=== PATIENT | female | born 1935 | race African-American/Black ===

== ENCOUNTER 2017-02-21 02:23 | Emergency (ER) | payer OTHER, BC ==
[2017-02-21 02:53] VITALS: BMI 58.3
--- NOTE | 2017-02-21 03:21 | PDOC ---
History of Present Illness - General Chief Complaint: Pain Stated Complaint: RIGHT SIDE PAIN Time Seen by Provider: 02/21/17 02:57 History Source: Patient Exam Limitations: No Limitations - History of Present Illness Initial Comments: 02/21/17 03:18 Patient is a 81 year old female with h/o HTN, DM, HLD, hyperthyroid, CVA, A-Fib , pacemaker, lumpectomy left breast, colitis c/o right lower quad abd pain x 2 wks pain radiates to the back. States pain is 8/10, crampy, continuos. Took Tylenol with mild relief. No aggravating factors. Had 2 days of diarrhea but now soft stools. denies fever, chills, nausea, vomiting, constipation, dysuria , chest pain, PMD: Dr. Bonilla PMHX: as above PSOCHx: neg cig, drug, etoh FamHx: noncontributory All: Sulfa GENERAL/CONSTITUTIONAL: [No fever or chills. No weakness. No weight change.] HEAD, EYES, EARS, NOSE AND THROAT: [No change in vision. No ear pain or discharge. No sore throat.] CARDIOVASCULAR: [No chest pain or shortness of breath.] RESPIRATORY: [No cough, wheezing, or hemoptysis.] GASTROINTESTINAL: (+) abdominla pain, No nausea, vomiting, (+) diarrhea (-) constipation. No rectal bleeding.] GENITOURINARY: [No dysuria, frequency, or change in urination.] MUSCULOSKELETAL: [No joint or muscle swelling or pain. No neck or back pain.] SKIN AND BREASTS: [No rash or easy bruising.] NEUROLOGIC: [No headache, vertigo, loss of consciousness, or loss of sensation.] PSYCHIATRIC: [No depression or anxiety.] ENDOCRINE: [No increased thirst. No abnormal weight change.] HEMATOLOGIC/LYMPHATIC: [No anemia, easy bleeding, or history of blood clots.] ALLERGIC/IMMUNOLOGIC: [No hives or skin allergy. No latex allergy.] GENERAL: [The patient is awake, alert, and fully oriented, in mild distress.] HEAD: [Normal with no signs of trauma.] EYES: [Pupils equal, round and reactive to light, extraocular movements intact, sclera anicteric, conjunctiva clear.] ENT: [Ears normal, nares patent, oropharynx clear without exudates. Moist mucous membranes.] NECK: [Normal range of motion, supple without lymphadenopathy, JVD, or masses.] LUNGS: [Breath sounds equal, clear to auscultation bilaterally. No wheezes, and no crackles.] HEART: [Regular rate and rhythm, normal S1 and S2 without murmur, rub.] ABDOMEN: [Soft, (+) tenderness to the RLQ (+) surgical scar right side of midline, normoactive bowel sounds. No guarding, no rebound. No masses.] EXTREMITIES: [Normal range of motion, no edema. No clubbing or cyanosis. No cords, erythema, or tenderness.] NEUROLOGICAL: [Cranial nerves II through XII grossly intact. Normal speech, normal gait.] PSYCH: [Normal mood, normal affect.] SKIN: [Warm, Dry, normal turgor, no rashes or lesions noted.] Past History - Past Medical History Allergies/Adverse Reactions: Allergies Allergy/AdvReac Type Severity Reaction Status Date / Time Sulfa (Sulfonamide Allergy Mild hives/rash Verified 02/21/17 02:49 Antibiotics) Home Medications: Ambulatory Orders Diltiazem HCl [Cardizem Cd] 360 mg PO DAILY #0 cap.er.24h 07/05/13 Furosemide [Lasix -] 40 mg PO DAILY #0 tablet 07/05/13 Glipizide [Glucotrol -] 5 mg PO BID #0 tablet 07/05/13 Pantoprazole Sodium [Protonix] 40 mg PO DAILY #0 tablet.dr 07/05/13 Valsartan [Diovan] 320 mg PO DAILY #0 tablet 07/05/13 Vitamin B Complex [B-100 Complex] 1 each PO DAILY #0 tablet 07/05/13 Insulin Lispro Protamin/Lispro [Humalog Mix 75-25 Kwikpen] 10 unit SQ BID Labetalol HCl 200 mg PO BID 07/23/15 Methimazole 5 mg PO DAILY 07/23/15 Warfarin Sodium [Coumadin] 2.5 mg PO DAILY #0 09/01/15 Anemia: Yes Asthma: No Cancer: No Cardiac Disorders: Yes (ATRIAL FIBRILLATION,DEMAND PACEMAKER) CVA: Yes (2008) COPD: No CHF: No Dementia: No Diabetes: Yes (non insulin dep.) GI Disorders: Yes (,HIATAL HERNIA,COLON POLYPS) Disorders: No HTN: Yes Hypercholesterolemia: Yes Liver Disease: No Suicide Attempt (Hx): No Seizures: No Thyroid Disease: Yes - Surgical History Abdominal Surgery: No Appendectomy: Yes Cardiac Surgery: Yes (PACEMAKER) Cholecystectomy: No Lung Surgery: No Neurologic Surgery: No Orthopedic Surgery: No - Psycho/Social/Smoking Cessation Hx Anxiety: No Suicidal Ideation: No Smoking Status: Yes Smoking History: Never smoked Have you smoked in the past 12 months: No Number of Cigarettes Smoked Daily: 0 Information on smoking cessation initiated: No Hx Alcohol Use: No Drug/Substance Use Hx: No Substance Use Type: None Abd/GI Specific PMHX - Complaint Specific PMHX GERD: No *Physical Exam - Vital Signs Last Vital Signs Temp Pulse Resp BP Pulse Ox 97.8 F 70 14 167/76 100 02/21/17 02:49 02/21/17 02:49 02/21/17 02:49 02/21/17 02:49 02/21/17 02:49 ED Treatment Course - LABORATORY CBC & Chemistry Diagram: 02/21/17 03:30 02/21/17 03:30 - RADIOLOGY Radiology Studies Ordered: Category Date Time Status ABDOMEN & PELVIS CT WITH CONTR [CT] Stat CT Scan 02/21/17 03:17 Ordered Medical Decision Making - Medical Decision Making 02/21/17 03:40 Patient is a 81 year old female with h/o HTN, DM, HLD, hyperthyroid, CVA, A-Fib , pacemaker, lumpectomy left breast, colitis c/o right lower quad abd pain x 2 wks pain radiates to the back. r/o uti, colitis, diverticulitis, renal stone declines pain meds Patient requesting something for pain. given Tylenol 1000mg IV 02/21/17 06:20 Patient Name: Zofia Kerns THIS IS A PRELIMINARYREPORT FROM [facility] EXAM: CT abdomen and pelvis with contrast IMAGES: 443 INDICATION: Right lower quadrant pain DATE OF SERVICE: 2017-02-21 04:33:59.0 COMPARISON: 07/02/13 FINDINGS: Lung bases are clear. The heart is moderately enlarged. Single pacer lead is noted.. Tiny right hepatic lobe hypodensity is likely a cyst. There is right renal scarring without stones or hydronephrosis. Normal gallbladder, pancreas, spleen, adrenal glands and left kidney. There is no bowel obstruction or inflammation. Colonic diverticulosis is noted without diverticulitis. There is no aortic aneurysm. There is no significant retroperitoneal lymphadenopathy. There is no evidence of appendicitis, although the appendix is not clearly visualized. The uterus and adnexal structures are notable only for a small calcified fibroid. Urinary bladder is unremarkable. There is a small amount of pelvic free fluid. No discrete pelvic lymphadenopathy is identified. IMPRESSION: No definite evidence of acute pathology. Right renal scarring. Small amount of pelvic free fluid could be physiologic THIS DOCUMENT HAS BEEN ELECTRONICALLY SIGNED Vini Jacobs MD 02/21/2017 05:19 ZACHERY Martinez Please call [facility] [phone] ([phone]) with questions 02/21/17 07:12 Endorsed to JOSSE Templeton *DC/Admit/Observation/Transfer Diagnosis at time of Disposition: Abdominal pain Qualifiers: Abdominal location: right lower quadrant Qualified Code(s): R10.31 - Right lower quadrant pain - Discharge Dispostion Condition at time of disposition: Stable - Referrals Referrals: Mia Flynn MD [Primary Care Provider] - - Patient Instructions Additional Instructions: Your must follow up with your pmd in 1-2 days, for further evaluation. Return to the ED for fever, chills, chest pain, sob or for any other complaints.
[2017-02-21 03:59] LABS: BASOPHIL 1.1 % (0-2.0); EOSINOPHIL 5.2 % (0-4.5); MCH 23.4 pg (25.7-33.7); MCHC 31.4 g/dl (32.0-36.0); MEAN CELL VOLUME 74.5 fl (80-96); MEAN PLT VOLUME 10.1 fl (7.5-11.1); NEUTROPHILS 51.1 % (42.8-82.8); PLATELET COUNT 160 K/MM3 (134-434); RDW 14.6 % (11.6-15.6); WHITE BLOOD COUNT 5.8 K/mm3 (4.0-10.0)
[2017-02-21 04:26] LABS: ALBUMIN 3.6 g/dl (3.4-5.0); BILIRUBIN,TOTAL 0.3 mg/dL (0.2-1.0); COCKROFT - GAULT 100.3; TOT PROT 6.3 g/dl (6.4-8.2)
[2017-02-21 04:31] LABS: INR 4.24 (0.82-1.09)
[2017-02-21] MEDS ORDERED: ACETAMINOPHEN 1000 MG/100 ML VIAL (NON FORMULARY) IVPB ONE (05:30)
[2017-02-21] MEDS ORDERED: ACETAMINOPHEN INJECTION 100 ML IVPB ONE (05:51)
[2017-02-21 07:09] LABS: URINE APPEARANCE CLEAR; URINE BILIRUBIN NEGATIVE (NEGATIVE); URINE COLOR COLORLESS; URINE GLUCOSE (UA) NEGATIVE (NEGATIVE); URINE KETONE NEGATIVE (NEGATIVE); URINE LEUK ESTERASE NEGATIVE (NEGATIVE); URINE NITRITE NEGATIVE (NEGATIVE); URINE PROTEIN NEGATIVE (NEGATIVE); URINE UROBILINOGEN NEGATIVE E.U./dl (0.2-1.0)
[2017-02-21 07:15] LABS: URINE BLOOD 1+ (NEGATIVE)
[2017-02-21 07:17] LABS: URINE RBC 2 /hpf (0-3); URINE WBC 1 /hpf (3-5)
--- NOTE | 2017-02-21 07:17 | PDOC ---
ED Treatment Course - LABORATORY CBC & Chemistry Diagram: 02/21/17 03:30 02/21/17 03:30 - ADDITIONAL ORDERS Additional order review: Laboratory Results 02/21/17 02/21/17 03:30 03:30 INR 4.24 H* D Sodium 142 Potassium 4.0 Chloride 108 H Carbon Dioxide 23 Anion Gap 11 BUN 28 H Creatinine 1.0 D Creat Clearance w eGFR 53.48 Random Glucose 113 H D Calcium 9.0 Total Bilirubin 0.3 D AST 22 D ALT 23 Alkaline Phosphatase 101 Total Protein 6.3 L Albumin 3.6 Lipase 132 02/21/17 03:30 RBC 4.23 MCV 74.5 L MCHC 31.4 L RDW 14.6 MPV 10.1 Neutrophils % 51.1 D Lymphocytes % 26.0 D Monocytes % 16.6 H Eosinophils % 5.2 H D Basophils % 1.1 - Medications Given in the ED: ED Medications Discontinued Medications Generic Name Dose Route Start Last Admin Trade Name Karen PRN Reason Stop Dose Admin Acetaminophen 1,000 mg 02/21/17 05:30 02/21/17 05:54 Ofirmev Injection - IVPB 02/21/17 05:31 1,000 mg ONCE ONE Administration Progress Note - Progress Note Progress Note: I have received report from TC Robles regarding this patient. Pt's initial chief complaint: RLQ abd pain x 2 weeks Pt's work up completed prior to sign out: labs, CT abd/pelvis Pt treatment given from prior staff: IV tylenol Pt plan to be completed: Awaiting UA results Dispo: Pending Medical Decision Making - Medical Decision Making A/P: 81 y/o afebrile female with 2 weeks of RLQ abd pain radiating to the back. The patient was initially seen and evalutated by TC Robles. Labs and CT abd/pelvis negative. Awaiting UA results. UA normal. Gave the patient all of her results. Will discharge to home with supportive care instructions and suggested she f/u with her PCP. The patient was instructed to return to the ER with any worsening or concerning symptoms. The patient verbalizes understanding of all instructions, has no further questions and is awaiting discharge. \ *DC/Admit/Observation/Transfer Diagnosis at time of Disposition: Abdominal pain Qualifiers: Abdominal location: right lower quadrant Qualified Code(s): R10.31 - Right lower quadrant pain - Discharge Dispostion Disposition: HOME Condition at time of disposition: Stable - Referrals Referrals: Mia Flynn MD [Primary Care Provider] - Eyad Villanueva MD [Staff Physician] - - Patient Instructions Printed Discharge Instructions: DI for Abdominal Pain-Adult Additional Instructions: Your must follow up with your pmd in 1-2 days, for further evaluation. Return to the ED for fever, chills, chest pain, sob or for any other complaints. - Post Discharge Activity
[2017-02-21 07:21] VITALS: BP 157/79; PULSE 66; TEMP 98
== END 2017-02-21 07:43 | disposition home or self-care (01) ==
LOC: JER 02:23
PROC: 3E033NZ Introduction of Analgesics, Hypnotics, Sedatives into Peripheral Vein, Percutaneous Approach (ICD-10-PCS; principal; 2017-02-21)
DX: R10.31 Right lower quadrant pain (principal); I10 Essential (primary) hypertension; E11.9 Type 2 diabetes mellitus without complications; Z79.84 Long term (current) use of oral hypoglycemic drugs; I48.91 Unspecified atrial fibrillation; Z79.01 Long term (current) use of anticoagulants; Z95.0 Presence of cardiac pacemaker
CPT/HCPCS: 36415; 74177-TC; 80053; 81003; 81015; 83690; 85025; 85610; 96374; 99283-25

== ENCOUNTER 2017-02-26 16:58 | Emergency (ER) | payer OTHER, BC ==
[2017-02-26 17:02] VITALS: BMI 26.4
--- NOTE | 2017-02-26 17:06 | PDOC ---
History of Present Illness - General History Source: Patient Exam Limitations: No Limitations - History of Present Illness Initial Comments: 02/26/17 17:34 The patient is a 81 year old with a significant past medical history of OBC, HTN , HLD, type 2 diabetes, AFIB (on coumadin), and colitis, who presents to the ED complaining of right lower quadrant abdominal pain constant for the past week and intermittent for the two weeks prior. She describes the RLQ pain as 10/ 10 in severity. She also complains of loose stools, but denies bloody, mucus, or black stools. She was seen in the ER on 02/21 and had relatively unremarkable labs. She also had a CT of the abdomen and pelvis with IV but not oral contrast that did not reveal any evidence of acute pathology. She denies fever, chills, nausea, vomiting, diarrhea. She denies dysuria, frequency, hematuria. The patient reports a distant history of abdominal surgery but does not remember if it was an appendectomy. PCP: Jed at [address] [place] [address]. <Wiliam Salinas - Last Filed: 02/26/17 17:34> <John Blackwell - Last Filed: 02/26/17 18:37> - General Chief Complaint: Pain, Acute Stated Complaint: ABD PAIN Time Seen by Provider: 02/26/17 17:01 Past History <Wiliam Salinas - Last Filed: 02/26/17 17:34> - Past Medical History Anemia: Yes Asthma: No Cancer: No Cardiac Disorders: Yes (ATRIAL FIBRILLATION,DEMAND PACEMAKER) CVA: Yes (2008) COPD: No CHF: No Dementia: No Diabetes: Yes (non insulin dep.) GI Disorders: Yes (,HIATAL HERNIA,COLON POLYPS) Disorders: No HTN: Yes Hypercholesterolemia: Yes Liver Disease: No Suicide Attempt (Hx): No Seizures: No Thyroid Disease: Yes - Surgical History Abdominal Surgery: No Appendectomy: Yes Cardiac Surgery: Yes (PACEMAKER) Cholecystectomy: No Lung Surgery: No Neurologic Surgery: No Orthopedic Surgery: No - Immunization History Immunization Up to Date: No - Psycho/Social/Smoking Cessation Hx Anxiety: No Suicidal Ideation: No Smoking Status: Yes Smoking History: Never smoked Have you smoked in the past 12 months: No Number of Cigarettes Smoked Daily: 0 Hx Alcohol Use: No Drug/Substance Use Hx: No Substance Use Type: None <John Blackwell - Last Filed: 02/26/17 18:37> - Past Medical History Allergies/Adverse Reactions: Allergies Allergy/AdvReac Type Severity Reaction Status Date / Time Sulfa (Sulfonamide Allergy Mild hives/rash Verified 02/26/17 17:00 Antibiotics) Home Medications: Ambulatory Orders Diltiazem HCl [Cardizem Cd] 360 mg PO DAILY #0 cap.er.24h 07/05/13 Glipizide [Glucotrol -] 5 mg PO BID #0 tablet 07/05/13 Valsartan [Diovan] 320 mg PO DAILY #0 tablet 07/05/13 Vitamin B Complex [B-100 Complex] 1 each PO DAILY #0 tablet 07/05/13 Insulin Lispro Protamin/Lispro [Humalog Mix 75-25 Kwikpen] 10 unit SQ BID Labetalol HCl 200 mg PO BID 07/23/15 Methimazole 5 mg PO DAILY 07/23/15 Warfarin Sodium [Coumadin] 2.5 mg PO DAILY #0 09/01/15 Digoxin [Lanoxin -] 0.125 mg PO DAILY 02/26/17 Donepezil HCl [Aricept -] 5 mg PO DAILY 02/26/17 Furosemide [Lasix -] 40 mg PO Q48H 02/26/17 Potassium Chloride [K-Dur -] 10 meq PO DAILY 02/26/17 Warfarin Na [Coumadin] 5 mg PO ASDIR 02/26/17 Review of Systems - Review of Systems Able to Perform ROS?: Yes Comments:: 02/26/17 17:35 CONSTITUTIONAL: Absent: fever, chills, diaphoresis, generalized weakness, malaise, loss of appetite HEENT: Absent: rhinorrhea, nasal congestion, throat pain, throat swelling, difficulty swallowing, mouth swelling, ear pain, eye pain, visual Changes CARDIOVASCULAR: Absent: chest pain, syncope, palpitations, irregular heart rate, lightheadedness , peripheral edema RESPIRATORY: Absent: cough, shortness of breath, dyspnea with exertion, orthopnea, wheezing, stridor, hemoptysis GASTROINTESTINAL: Present: RLQ pain. Absent: abdominal distension, nausea, vomiting, diarrhea, constipation, melena, hematochezia GENITOURINARY: Absent: dysuria, frequency, urgency, hesitancy, hematuria, flank pain, genital pain MUSCULOSKELETAL: Absent: myalgia, arthralgia, joint swelling SKIN: Absent: rash, itching, pallor HEMATOLOGIC/IMMUNOLOGIC: Absent: easy bleeding, easy bruising, lymphadenopathy, frequent infections ENDOCRINE: Absent: unexplained weight gain, unexplained weight loss, heat intolerance, cold intolerance NEUROLOGIC: Absent: headache, focal weakness or paresthesias, dizziness, unsteady gait, seizure, mental status changes, bladder or bowel incontinence PSYCHIATRIC: Absent: anxiety, depression, suicidal or homicidal ideation, hallucinations. <HeathermicaelaWiliam - Last Filed: 02/26/17 17:34> *Physical Exam - Vital Signs Last Vital Signs Temp Pulse Resp BP Pulse Ox 97.8 F 85 17 178/83 99 02/26/17 16:59 02/26/17 16:59 02/26/17 16:59 02/26/17 16:59 02/26/17 16:59 - Physical Exam Comments: 02/26/17 17:35 GENERAL: Well developed, well nourished. Awake and alert. No acute distress. HEENT: Normocephalic, atraumatic. PERRLA, EOMI. No conjunctival pallor. Sclera are non- icteric. Moist mucous membranes. Oropharynx is clear. NECK: Supple. Full ROM. No JVD. Carotid pulses 2+ and symmetric, without bruits. No thyromegaly. No lymphadenopathy. CARDIOVASCULAR: Regular rate and rhythm. No murmurs, rubs, or gallops. Distal pulses are 2+ and symmetric. PULMONARY: No evidence of respiratory distress. Lungs clear to auscultation bilaterally. No wheezing, rales or rhonchi. ABDOMINAL: Right lower quadrant tenderness On deep palpation. Non-distended. No rebound or guarding. No organomegaly. Normoactive bowel sounds. MUSCULOSKELETAL Normal range of motion at all joints. No bony deformities or tenderness. No CVA tenderness. EXTREMITIES: No cyanosis. No clubbing. No edema. No calf tenderness. SKIN: Warm and dry. Normal capillary refill. No rashes. No jaundice. NEUROLOGICAL: Alert, awake, appropriate. Cranial nerves 2-12 intact. No deficits to light touch and temperature in face, upper extremities and lower extremities. No motor deficits in the in face, upper extremities and lower extremities. Normoreflexic in the upper and lower extremities. Normal speech. Toes are down-going bilaterally. Gait is normal without ataxia. PSYCHIATRIC: Cooperative. Good eye contact. Appropriate mood and affect. <Wiliam Salinas - Last Filed: 02/26/17 17:34> - Vital Signs Last Vital Signs Temp Pulse Resp BP Pulse Ox 97.8 F 85 17 178/83 99 02/26/17 16:59 02/26/17 16:59 02/26/17 16:59 02/26/17 16:59 02/26/17 16:59 <John Blackwell - Last Filed: 02/26/17 18:37> ED Treatment Course - LABORATORY CBC & Chemistry Diagram: 02/26/17 17:12 02/26/17 17:14 <Wiliam Salinas - Last Filed: 02/26/17 17:34> - LABORATORY CBC & Chemistry Diagram: 02/26/17 17:12 02/26/17 17:14 <John Blackwell - Last Filed: 02/26/17 18:37> Medical Decision Making - Medical Decision Making 02/26/17 17:09 The patient is well-appearing and in no acute distress Given her persistent symptoms, will obtain repeat CT of the abdomen and pelvis with oral and IV contrast Will obtain labs, urinalysis 02/26/17 17:29 EKG: Ventricular pacing with occasional Naprosyn and beats, ventricular rate of 66 02/26/17 17:30 02/26/17 18:02 CBC noted, without leukocytosis Chemistries pending, urinalysis pending, CT pending 02/26/17 18:05 Chemistries noted CRP, lactic acid noted CT pending She is drinking contrast 02/26/17 18:37 The patient remains stable, and is awaiting CAT scan Case discussed in detail with oncoming Emergency Physician including history, physical exam and ancillary studies. Oncoming Emergency Physician has assumed care for the patient and will complete the evaluation and treatment. <John Blackwell - Last Filed: 02/26/17 18:37> *DC/Admit/Observation/Transfer - Attestations Scribe Attestion: 02/26/17 17:36 Documentation prepared by Wiliam Salinas, acting as medical microbiologist for John Blackwell MD. <Wiliam Salinas - Last Filed: 02/26/17 17:34> <John Blackwell - Last Filed: 02/26/17 18:37> Diagnosis at time of Disposition: Abdominal pain - Discharge Dispostion Condition at time of disposition: Stable
[2017-02-26 17:39] LABS: BASOPHIL 0.7 % (0-2.0); WHITE BLOOD COUNT 6.6 K/mm3 (4.0-10.8)
[2017-02-26 17:42] LABS: EOSINOPHIL 3.6 % (0-4.5); MCH 24.6 pg (25.7-33.7); MCHC 33.2 g/dl (32.0-36.0); MEAN CELL VOLUME 74.3 fl (80-96); MEAN PLT VOLUME 10.1 fl (7.5-11.1); PLATELET COUNT 190 K/MM3 (134-434)
[2017-02-26] MEDS ORDERED: ACETAMINOPHEN 1000 MG/100 ML VIAL (NON FORMULARY) IVPB ONE (17:42)
[2017-02-26] MEDS ORDERED: ACETAMINOPHEN INJECTION 100 ML IVPB ONE (17:47)
[2017-02-26 17:50] LABS: ALBUMIN 3.9 g/dl (3.5-5.0); BILIRUBIN,TOTAL 0.7 mg/dl (0.2-1.0); CALCIUM 9.5 mg/dl (8.4-10.2); COCKROFT - GAULT 45.73; TOT PROT 6.4 g/dl (6.4-8.3)
[2017-02-26 17:53] LABS: INR 2.6 (0.82-1.09); PROTHROMBIN TIME (PATIENT) 28.6 SEC (10.2-13.0)
--- NOTE | 2017-02-26 20:10 | PDOC ---
*Physical Exam - Vital Signs Last Vital Signs Temp Pulse Resp BP Pulse Ox 97.8 F 85 17 178/83 99 02/26/17 16:59 02/26/17 16:59 02/26/17 16:59 02/26/17 16:59 02/26/17 16:59 ED Treatment Course - LABORATORY CBC & Chemistry Diagram: 02/26/17 17:12 02/26/17 17:14 - ADDITIONAL ORDERS Additional order review: Laboratory Results 02/26/17 02/26/17 02/26/17 17:14 17:14 17:14 INR 2.60 H D PTT (Actin FS) 35.0 D Sodium 136 Potassium 3.5 Chloride 103 Carbon Dioxide 23 Anion Gap 10 BUN 29 H D Creatinine 1.0 D Creat Clearance w eGFR 53.48 Random Glucose 203 H D Lactic Acid 1.2 Calcium 9.5 Total Bilirubin 0.7 D AST 25 ALT 20 Alkaline Phosphatase 93 H D C-Reactive Protein Total Protein 6.4 Albumin 3.9 Lipase 35 02/26/17 17:14 INR PTT (Actin FS) Sodium Potassium Chloride Carbon Dioxide Anion Gap BUN Creatinine Creat Clearance w eGFR Random Glucose Lactic Acid Calcium Total Bilirubin AST ALT Alkaline Phosphatase C-Reactive Protein < 0.3 Total Protein Albumin Lipase 02/26/17 17:12 RBC 4.41 MCV 74.3 L MCHC 33.2 RDW 13.0 MPV 10.1 Neutrophils % 61.0 Lymphocytes % 21.8 Monocytes % 12.9 H Eosinophils % 3.6 Basophils % 0.7 - Medications Given in the ED: ED Medications Discontinued Medications Generic Name Dose Route Start Last Admin Trade Name Freq PRN Reason Stop Dose Admin Acetaminophen 1,000 mg 02/26/17 17:42 02/26/17 17:50 Ofirmev Injection - IVPB 02/26/17 17:43 1,000 mg ONCE ONE Administration Progress Note - Progress Note Progress Note: Care of this patient was transferred to [place] from Dr. Iyer at 1900 hrs. Patient is an elderly 81-year-old female who has had ongoing abdominal pain for a couple weeks. Patient was in [facility] emergency Department and recently had a workup for her abdominal pain including a IV contrast only CAT scan which was unremarkable as well as her blood work. Patient now comes back in with constant and worsening abdominal pain. Patient has a CT abdomen pending with both oral and IV contrast. 21:00 CT scan is unremarkable for any acute pathology The appendix was not seen so suspect that the patient's abdominal surgery was for an appendectomy There is no evidence of diverticulitis. Patient reports that the pain is better but still present. In discussion with the son and the son said that patient spends hours and hours on a firm chair hunched over to her right hand side and thinks that this may be a contributing factor to her discomfort and pain. The son says the pain does seem to be better when she is laying down or moving around. I considered keeping the patient for additional workup and evaluation however patient is adamant that she does not want to stay in the hospital and the the son is comfortable taking her home and will bring her back if she develops any vomiting, fever, bloody diarrhea or any worsening pain. Patient does also have a primary care doctor she will follow- up with on Tuesday. *DC/Admit/Observation/Transfer Diagnosis at time of Disposition: Abdominal pain - Discharge Dispostion Disposition: HOME Condition at time of disposition: Stable Admit: No - Patient Instructions Printed Discharge Instructions: DI for Abdominal Pain-Adult Additional Instructions: Take Tylenol as needed for the pain. Do not sit hunched over in your chair as it is most likely contributing to your abdominal pain. Return to the emergency department immediately with ANY new, persistent or worsening symptoms. Continue any medications as previously prescribed by your physician. You should follow up with your primary doctor as soon as possible regarding today's emergency department visit. . Please make sure your doctor reviews the results of your emergency evaluation. Thank you for coming to the Emergency Department today for your care. It was a pleasure to see you today. Please note that your evaluation is INCOMPLETE until you follow-up with your doctor.
[2017-02-26 21:02] VITALS: BP 175/62; PULSE 70; TEMP 98.2
--- NOTE | 2017-02-28 10:44 | EKG ---
Test Reason : Blood Pressure : / mmHG Vent. Rate : 064 BPM Atrial Rate : 076 BPM P-R Int : 000 ms QRS Dur : 086 ms QT Int : 386 ms P-R-T Axes : 000 021 -74 degrees QTc Int : 398 ms ELECTRONIC VENTRICULAR PACEMAKER ATRIAL FIBRILLATION ABNORMAL ECG WHEN COMPARED WITH ECG OF 01-SEP-2015 08:32, ELECTRONIC VENTRICULAR PACEMAKER IS NOW PRESENT VENT. RATE HAS DECREASED BY 71 BPM Confirmed by RACHNA SANTIAGO, YAAKOV (2016) on 02/28/2017 10:44:04 AM Referred By: JEFFREY FERNANDEZ Confirmed By:YAAKOV BRISCOE MD
== END 2017-02-26 21:53 | disposition home or self-care (01) ==
LOC: FER 16:58
PROC: 3E033NZ Introduction of Analgesics, Hypnotics, Sedatives into Peripheral Vein, Percutaneous Approach (ICD-10-PCS; principal; 2017-02-26)
DX: R10.9 Unspecified abdominal pain (principal); I48.91 Unspecified atrial fibrillation; Z95.0 Presence of cardiac pacemaker; I10 Essential (primary) hypertension; E78.00 Pure hypercholesterolemia, unspecified; Z86.73 Personal history of transient ischemic attack (TIA), and cerebral infarction without residual deficits
CPT/HCPCS: 36415; 74177-TC; 80053; 83605; 83690; 85025; 85610; 85730; 86140; 93005; 96374; 99282-25

== ENCOUNTER 2017-05-11 05:16 | Day surgery (SDC) | payer OTHER, BC ==
[2017-05-09 10:59] VITALS: BMI 25.4
[2017-05-11] MEDS: PHENYLEPHRINE 2.5% OPHTH SOLN 15 ML BOTTLE ONE ×2 (07:15→07:25)
[2017-05-11] MEDS: FLURBIPROFEN 0.03% OPHTH SOLN 2.5 ML BOTTLE ONE ×2 (07:15→07:25)
[2017-05-11] MEDS: CYCLOPENTOLATE HCL 1% OPHTH SOLN 2 ML BOTTLE ONE ×2 (07:15→07:25)
[2017-05-11] MEDS: TROPICAMIDE 1% OPHTH SOLN 15 ML BOTTLE ONE ×2 (07:15→07:25)
[2017-05-11] MEDS: CIPROFLOXACIN 0.3% EYE DROPS 5 ML BOTTLE ONE ×2 (07:15→07:25)
[2017-05-11 07:25] VITALS: TEMP 98
[2017-05-11] MEDS ORDERED: EPINEPHrine/PF 1 MG/1 ML (1:1,000) AMPULE ONE (07:36)
[2017-05-11] MEDS ORDERED: VANCOMYCIN 500 MG VIAL (RESTRICTED TO ID ONLY) ONE (07:36)
[2017-05-11] MEDS ORDERED: LIDOCAINE HCL/PF 1% SDV 5ML VIAL ONE (07:37)
[2017-05-11] MEDS ORDERED: WATER FOR INJ,STERILE 10 ML ONE (07:37)
[2017-05-11] MEDS ORDERED: LIDOCAINE HCL 2% JELLY (5 ML/TUBE) ONE (07:37)
[2017-05-11] MEDS ORDERED: POVIDONE-IODINE 5% OPHTHALMIC PREP 30 ML SOLUTION ONE (07:37)
[2017-05-11] MEDS ORDERED: ACETAMINOPHEN 325 MG TABLET (FP) PO PRN (07:41)
[2017-05-11] MEDS ORDERED: MIDAZOLAM HCL 2 MG/2 ML SINGLE DOSE VIAL ONE (07:42)
[2017-05-11] MEDS ORDERED: TROPICAMIDE 1% OPHTH SOLN 15 ML BOTTLE OP SCH (07:45)
[2017-05-11] MEDS ORDERED: FLURBIPROFEN 0.03% OPHTH SOLN 2.5 ML BOTTLE OP SCH (07:45)
[2017-05-11] MEDS ORDERED: CYCLOPENTOLATE HCL 1% OPHTH SOLN 2 ML BOTTLE OP SCH (07:45)
[2017-05-11] MEDS ORDERED: CIPROFLOXACIN HCL 0.3% OPHTH 2.5ML BOTTLE OP SCH (07:45)
[2017-05-11] MEDS ORDERED: PHENYLEPHRINE 2.5% OPHTH SOLN 15 ML BOTTLE OP SCH (07:45)
[2017-05-11] MEDS ORDERED: LIDOCAINE HCL 2% JELLY (5 ML/TUBE) TP ONE (07:50)
[2017-05-11] MEDS ORDERED: TRYPAN BLUE 0.5 ML DISP.SYRIN ONE (08:09)
[2017-05-11] MEDS ORDERED: POVIDONE-IODINE 5% OPHTHALMIC PREP 30 ML SOLUTION OS ONE (08:11)
[2017-05-11] MEDS ORDERED: CHONDROITIN SU A/HYALUR SOD 1 KIT IO ONE (08:21)
[2017-05-11] MEDS ORDERED: LIDOCAINE HCL 1% PRESERVATIVE FREE - 30ML VIAL IO ONE (08:21)
[2017-05-11] MEDS ORDERED: TRYPAN BLUE 0.5 ML DISP.SYRIN IO ONE (08:21)
[2017-05-11] MEDS ORDERED: BSS (NA/CA/MG/K) BALANCED SALT SOLUTION OPHTH SOLN 15 ML BOTTLE OS ONE (08:21)
[2017-05-11] MEDS ORDERED: EPINEPHrine/PF 1 MG/1 ML (1:1,000) AMPULE IO ONE (08:27)
[2017-05-11 10:29] VITALS: BP 162/63; PULSE 70
--- NOTE | 2017-05-11 14:27 | OP ---
DATE OF OPERATION: 05/11/2017 DATE OF DICTATION: 05/11/2017 PREOPERATIVE DIAGNOSIS: Cataract left eye. POSTOPERATIVE DIAGNOSIS: Cataract left eye. SURGEON: Le Carvalho M.D. PROCEDURE: Phacoemulsification with posterior chamber intraocular lens implantation. Capsular staining with Trypan blue. Lens used [id number] 23.0-diopter power, Serial number [id number]. ANESTHESIA: Topical MAC. COMPLICATIONS: None. PROCEDURE: The patient was brought to the operating room and correctly identified along with the operative site as well as correct intraocular lens scott. The patient was then prepped and draped in the usual sterile fashion including 5% Betadine solution in the conjunctival sac and an eyelid drape. An eyelid speculum was then placed into the operative eye. The eye was inspected and a poor red reflex was noted. A paracentesis port was created and .5 mL of intracameral preservative-free Lidocaine 1% was given. Beneath an air bubble, the capsule was then stained with Trypan blue. The Trypan blue was then irrigated from the eye with balanced salt solution (BBS). Viscoelastic was injected to inflate the anterior chamber. A temporal clear corneal would was created. A continuous circular capsulorrhexis was performed. The nucleus was then hydro-dissected and hydro-delineated was BSS and removed with phacoemulsification via [id number] approach. The remaining cortical material was irrigated and aspirated from the eye. Viscoelastic was injected in the anterior chamber to inflate the capsular bag. The intraocular lens was then injected into the bag. The Viscoelastic was irrigated and aspirated from the eye. All wounds were tested and found to be watertight. No suture was placed. The intraocular lens was noted to be well centered and covered by the anterior capsular border. Topical Vancomycin was given. The eye was patched and shielded. The patient was discharged from the operating room in stable condition. LE CARVALHO M.D. [id number]
== END 2017-05-11 10:10 | disposition home or self-care (01) ==
LOC: JASU-SURG 05:16
PROVIDERS: ATTEND Ophthalmology
PROC: 08RK3JZ Replacement of Left Lens with Synthetic Substitute, Percutaneous Approach (ICD-10-PCS; principal; 2017-05-11 08:00)
DX: H26.9 Unspecified cataract (principal); R29.2 Abnormal reflex

== ENCOUNTER 2017-05-25 06:30 | Day surgery (SDC) | payer OTHER, BC ==
[2017-05-23 13:49] VITALS: BMI 25.4
[~2017-05-25 06:30] MED LIST: CHONDROITIN SU A/HYALUR SOD 1 KIT IO ONE; EPINEPHrine/PF 1 MG/1 ML (1:1,000) AMPULE SQ ONE; LIDOCAINE HCL 1% PRESERVATIVE FREE - 30ML VIAL IO ONE; LIDOCAINE HCL 2% JELLY (5 ML/TUBE) TP ONE; TRYPAN BLUE 0.5 ML DISP.SYRIN IO ONE
[2017-05-25] MEDS ORDERED: FLURBIPROFEN 0.03% OPHTH SOLN 2.5 ML BOTTLE OD ONE ×3 (07:15→07:25)
[2017-05-25] MEDS ORDERED: CYCLOPENTOLATE HCL 1% OPHTH SOLN 2 ML BOTTLE OD ONE ×3 (07:15→07:25)
[2017-05-25] MEDS ORDERED: PHENYLEPHRINE 2.5% OPHTH SOLN 15 ML BOTTLE OD ONE ×3 (07:15→07:25)
[2017-05-25] MEDS ORDERED: TROPICAMIDE 1% OPHTH SOLN 15 ML BOTTLE OD ONE ×3 (07:15→07:25)
[2017-05-25] MEDS ORDERED: CIPROFLOXACIN HCL 0.3% OPHTH 2.5ML BOTTLE OD ONE ×3 (07:15→07:25)
[2017-05-25] MEDS ORDERED: ACETAMINOPHEN 325 MG TABLET (FP) PO PRN (07:48)
[2017-05-25] MEDS ORDERED: LIDOCAINE HCL 2% JELLY (5 ML/TUBE) TP ONE (07:59)
[2017-05-25] MEDS ORDERED: PHENYLEPHRINE 2.5% OPHTH SOLN 15 ML BOTTLE OP SCH (08:00)
[2017-05-25] MEDS ORDERED: TROPICAMIDE 1% OPHTH SOLN 15 ML BOTTLE OP SCH (08:00)
[2017-05-25] MEDS ORDERED: CYCLOPENTOLATE HCL 1% OPHTH SOLN 2 ML BOTTLE OP SCH (08:00)
[2017-05-25] MEDS ORDERED: CIPROFLOXACIN HCL 0.3% OPHTH 2.5ML BOTTLE OP SCH (08:00)
[2017-05-25] MEDS ORDERED: FLURBIPROFEN 0.03% OPHTH SOLN 2.5 ML BOTTLE OP SCH (08:00)
[2017-05-25] MEDS ORDERED: POVIDONE-IODINE 5% OPHTHALMIC PREP 30 ML SOLUTION OD ONE (08:06)
[2017-05-25] MEDS ORDERED: LIDOCAINE HCL 1% PRESERVATIVE FREE - 30ML VIAL IO ONE (08:13)
[2017-05-25] MEDS ORDERED: TRYPAN BLUE 0.5 ML DISP.SYRIN IO ONE (08:13)
[2017-05-25] MEDS ORDERED: CHONDROITIN SU A/HYALUR SOD 1 KIT IO ONE (08:15)
[2017-05-25] MEDS ORDERED: EPINEPHrine/PF 1 MG/1 ML (1:1,000) AMPULE SQ ONE (08:31)
[2017-05-25 10:00] VITALS: BP 125/57; PULSE 75
--- NOTE | 2017-05-25 11:02 | SPEC ---
DATE OF OPERATION: 05/25/2017 PREOPERATIVE DIAGNOSIS: Cataract right eye. POSTOPERATIVE DIAGNOSIS: Mature cataract right eye. OPERATION: Phacoemulsification of right cataract and capsular staining with Trypan blue and posterior chamber intraocular lens implantation and capsular staining with Trypan blue. The lens used [id number], 22.0 diopter power, serial No. [id number]. SURGEON: Le Carvalho M.D. ANESTHESIA: Topical MAC. COMPLICATIONS: None. PROCEDURE: The patient was brought to the operating room and correctly identified along with the operative site as well as correct intraocular lens scott. The patient was then prepped and draped in the usual sterile fashion including 5% Betadine solution in the conjunctival sac and an eyelid drape. An eyelid speculum was then placed into the operative eye. The eye was inspected and a poor red reflex was noted. A paracentesis port was created and .5 mL of intracameral preservative-free Lidocaine 1% was given. Beneath an air bubble, the capsule was then stained with Trypan blue. The Trypan blue was then irrigated from the eye with balanced salt solution (BBS). Viscoelastic was injected to inflate the anterior chamber. A temporal clear corneal wound was created. A continuous circular capsulorrhexis was performed. The nucleus was then hydro-dissected and hydro-delineated was BSS and removed with phacoemulsification via [id number] approach. The remaining cortical material was irrigated and aspirated from the eye. Viscoelastic was injected in the anterior chamber to inflate the capsular bag. The intraocular lens was then injected into the bag. The Viscoelastic was irrigated and aspirated from the eye. All wounds were tested and found to be watertight. No suture was placed. The intraocular lens was noted to be well centered and covered by the anterior capsular border. Topical Vancomycin was given. The eye was patched and shielded. The patient was discharged from the operating room in stable condition LE CARVALHO M.D. [id number]
== END 2017-05-25 10:37 | disposition home or self-care (01) ==
LOC: JASU-SURG 06:30
PROVIDERS: ATTEND Ophthalmology
PROC: 08RJ3JZ Replacement of Right Lens with Synthetic Substitute, Percutaneous Approach (ICD-10-PCS; principal; 2017-05-25 08:00)
DX: H25.11 Age-related nuclear cataract, right eye (principal); H57.09 Other anomalies of pupillary function

== ENCOUNTER 2018-11-08 00:15 | Inpatient (IN) | payer OTHER ==
[2018-11-08] MEDS ORDERED: GlUCAGON HUMAN RECOMBINANT 1 MG/VIAL ONE (00:29)
--- NOTE | 2018-11-08 01:34 | PDOC ---
Attending Attestation - HPI HPI: 11/08/18 01:59 The patient is a 83 year old female, with a significant past medical history of HTN, HLD, type 2 diabetes, CVA (), and Afib, who presents to the emergency department s/p episode of hypoglycemia. Patient endorses taking her Humalog mix insulin (75-25) without eating afterwards (normally eats after taking her insulin) when she began walking unsteadily, prompting them to call for EMS. While in the ED, the patient notes feeling lightheaded. Family denies that the patient hit her head. She denies recent chest pain or shortness of breath. Allergies: Sulfa Social history: Nonsmoker. Denies EtOH use and recreational drug use. Primary Care Physician: Dr. Ronal Lewis - Physicial Exam PE: 11/08/18 01:59 Agree with resident exam. <Ryne Montalvo - Last Filed: 11/08/18 02:09> - Resident Resident Name: Pankaj Woods - ED Attending Attestation I have performed the following: I have examined & evaluated the patient, The case was reviewed & discussed with the resident, I agree w/resident's findings & plan - Medical Decision Making 11/08/18 03:29 83-year-old female with acute onset of altered mental status found to have low blood sugar at home The patient took her insulin and did not eat according to family members She is also currently on glipizide She began feeling lightheaded in the emergency department and was found to have a blood sugar of 69 D50 one amp given as well as orange juice Due to oral hypoglycemics and persistent hypoglycemia patient will be held for observation <Tete Ramos - Last Filed: 11/08/18 03:31> Attestations - Attestations 11/08/18 02:00 Documentation prepared by Ryne Montalvo, acting as medical referral coordinator for Tete Ramos DO. <Ryne Montalvo - Last Filed: 11/08/18 02:09>
--- NOTE | 2018-11-08 02:14 | PDOC ---
History of Present Illness - General Chief Complaint: Blood Sugar Problem Stated Complaint: HYPOGLYCEMIA Time Seen by Provider: 11/08/18 01:32 History Source: Patient Exam Limitations: No Limitations - History of Present Illness Initial Comments: 11/08/18 02:07 The patient is an 83F with a PMH of OBC, HTN, HLD, type 2 diabetes, AFIB (on coumadin), and colitis who presents to the ER with family for an episode of hypoglycemia. The history is provided by the family and son who was at the house with her. They state that she gave herself her insulin medication and a "couple" hours after, began to stumble down the hallway, held herself on the wall and slowly made her way down to the floor. The patient does not remember falling but per family, was in her normal state of health today without any complaints of fever, chills nausea, vomiting, CP, SOB, lightheadedness, dysuria , abdominal pain, or cough. Past History - Past Medical History Allergies/Adverse Reactions: Allergies Allergy/AdvReac Type Severity Reaction Status Date / Time Sulfa (Sulfonamide Allergy Mild hives/rash Verified 11/08/18 01:06 Antibiotics) Home Medications: Ambulatory Orders Diltiazem HCl [Cardizem Cd] 360 mg PO DAILY #0 cap.er.24h 07/05/13 Glipizide [Glucotrol -] 5 mg PO BID #0 tablet 07/05/13 Valsartan [Diovan] 320 mg PO DAILY #0 tablet 07/05/13 Vitamin B Complex [B-100 Complex] 1 each PO DAILY #0 tablet 07/05/13 Insulin Lispro Protamin/Lispro [Humalog Mix 75-25 Kwikpen] 10 unit SQ BID Labetalol HCl 200 mg PO BID 07/23/15 Methimazole 5 mg PO DAILY 07/23/15 Digoxin [Lanoxin -] 0.125 mg PO DAILY 02/26/17 Donepezil HCl [Aricept -] 5 mg PO DAILY 02/26/17 Furosemide [Lasix -] 40 mg PO Q48H 02/26/17 Potassium Chloride [K-Dur -] 10 meq PO ASDIR 02/26/17 Warfarin Na [Coumadin] 5 mg PO ASDIR 02/26/17 Warfarin Na [Coumadin] 2.5 mg PO DAILY 05/23/17 Anemia: Yes Asthma: No Cancer: No Cardiac Disorders: Yes (ATRIAL FIBRILLATION,DEMAND PACEMAKER) CVA: Yes (2009) COPD: No CHF: No Dementia: No Diabetes: Yes (IDDM) GI Disorders: Yes (,HIATAL HERNIA,COLON POLYPS) Disorders: No HTN: Yes Hypercholesterolemia: Yes (BORDERLINE) Liver Disease: No Seizures: No Thyroid Disease: Yes - Surgical History Abdominal Surgery: No Appendectomy: Yes Cardiac Surgery: Yes (PACEMAKER) Cholecystectomy: No Lung Surgery: No Neurologic Surgery: No Orthopedic Surgery: No - Immunization History Immunization Up to Date: No - Suicide/Smoking/Psychosocial Hx Smoking Status: Yes Smoking History: Never smoked Have you smoked in the past 12 months: No Number of Cigarettes Smoked Daily: 0 Information on smoking cessation initiated: No Hx Alcohol Use: No Drug/Substance Use Hx: No Substance Use Type: None Hx Substance Use Treatment: No Review of Systems - Review of Systems Able to Perform ROS?: Yes Comments:: 11/08/18 02:45 GENERAL/CONSTITUTIONAL: Positive for "feeling woozy". No fever or chills. No weakness. HEAD, EYES, EARS, NOSE AND THROAT: No change in vision. No ear pain or discharge. No sore throat. CARDIOVASCULAR: No chest pain, palpitations, or lightheadedness. RESPIRATORY: No cough, wheezing, shortness of breath, or hemoptysis. GASTROINTESTINAL: No nausea, vomiting, diarrhea, constipation, or abdominal pain. GENITOURINARY: No dysuria, frequency, hematuria, or change in urination. MUSCULOSKELETAL: No joint or muscle swelling or pain. No neck or back pain. SKIN: No rash or lesions. NEUROLOGIC: No headache, numbness, tingling, focal weakness, loss of consciousness, or change in strength/sensation. Is the patient limited Honduran proficient: No *Physical Exam - Vital Signs Last Vital Signs Temp Pulse Resp BP Pulse Ox 97.7 F 112 H 20 160/90 98 11/08/18 00:15 11/08/18 00:15 11/08/18 00:15 11/08/18 00:15 11/08/18 00:15 - Physical Exam Comments: 11/08/18 02:45 GENERAL: Well developed, well nourished. Awake and alert. No acute distress. HEENT: Normocephalic, atraumatic. Hearing grossly normal. Moist mucous membranes. PERRLA, EOMI. No conjunctival pallor. Sclera are non-icteric. NECK: Supple. Full ROM. No JVD. CARDIOVASCULAR: Regular rate and rhythm. No murmurs, rubs, or gallops. PULMONARY: No evidence of respiratory distress. Lungs clear to auscultation bilaterally. No wheezing, rales or rhonchi. ABDOMINAL: Soft. Non-tender. Non-distended. No rebound or guarding. GENITOURINARY: No CVA tenderness bilaterally. MUSCULOSKELETAL: Normal range of motion at all joints. No bony deformities or tenderness. EXTREMITIES: No cyanosis. No clubbing. No edema. No calf tenderness or swelling. SKIN: Warm and dry. Normal capillary refill. No rashes. No jaundice. NEUROLOGICAL: Alert, awake, appropriate. Cranial nerves 2-12 grossly intact. Normal speech. PSYCHIATRIC: Cooperative. Good eye contact. Appropriate mood and affect. Moderate Sedation - Procedure Monitoring Vital Signs: Procedure Monitoring Vital Signs Temperature 97.7 F 11/08/18 00:15 Pulse Rate 112 H 11/08/18 00:15 Respiratory Rate 20 11/08/18 00:15 Blood Pressure 160/90 11/08/18 00:15 O2 Sat by Pulse Oximetry (%) 98 11/08/18 00:15 ED Treatment Course - LABORATORY CBC & Chemistry Diagram: 11/08/18 02:45 11/08/18 02:45 Medical Decision Making - Medical Decision Making 11/08/18 02:46 The patient is an 83F with an extensive PMH who presents to the ER after having a hypoglycemic episode and falling, caught by her son. No head trauma. PE negative. FS 69, giving 1 amp d50. Labwork pending. Pt is on a glipizide and will require inpatient monitoring for hypoglycemic episodes. 11/08/18 03:46 I have endorsed the pt to the ICU resident, Dr. Goodman. 11/08/18 04:55 Case d/w inpatient team who would like the patient to a tele bed. Will place order and cancel ICU consult. *DC/Admit/Observation/Transfer Diagnosis at time of Disposition: Hypoglycemia - Discharge Dispostion Condition at time of disposition: Guarded Decision to Admit order: Yes - Referrals Referrals: Grey Lewis MD [Non Staff, Medical] - - Patient Instructions - Post Discharge Activity
[2018-11-08] MEDS ORDERED: DEXTROSE 50%-WATER - 25 GM/50 ML VIAL IVPUSH PRN (02:25)
[2018-11-08] MEDS ORDERED: DEXTROSE 50%-WATER 25 GM/50 ML DISP.SYRIN ONE (02:28)
[2018-11-08 02:51] LABS: BASO % 1.2 % (0-2.0); EOS % 1.1 % (0-4.5); HEMATOCRIT 32.5 % (32.4-45.2); LYMPH % 9.4 % (8-40); MCH 25.3 pg (25.7-33.7); MCHC 33.9 g/dl (32.0-36.0); MEAN CELL VOLUME 74.6 fl (80-96); MEAN PLT VOLUME 8.9 fl (7.5-11.1); MONO % 9.6 % (3.8-10.2); NEUT % 78.7 % (42.8-82.8); PLATELET COUNT 167 K/MM3 (134-434); RBC 4.36 M/mm3 (3.60-5.2); RDW 15.9 % (11.6-15.6); WHITE BLOOD COUNT 8.7 K/mm3 (4.0-10.0)
[2018-11-08 02:55] LABS: URINE APPEARANCE CLEAR; URINE BILIRUBIN NEGATIVE (<2.0 mg/dL); URINE COLOR STRAW; URINE GLUCOSE (UA) 1+ (NEGATIVE); URINE KETONE NEGATIVE (NEGATIVE); URINE LEUK ESTERASE NEGATIVE (NEGATIVE); URINE NITRITE NEGATIVE (NEGATIVE); URINE PROTEIN 2+ (NEGATIVE); URINE UROBILINOGEN NEGATIVE mg/dL (0.2-1.0)
[2018-11-08 02:56] LABS: URINE MUCUS RARE
[2018-11-08 03:23] LABS: ALBUMIN 3.2 g/dl (3.4-5.0); ALK PHOS 120 U/L (45-117); ANION GAP 8 MMOL/L (8-16); BILIRUBIN,TOTAL 0.2 mg/dL (0.2-1); BLOOD UREA NITROGEN 30 mg/dL (7-18); CALCIUM 9.1 mg/dL (8.5-10.1); CHLORIDE 103 mmol/L (98-107); CO2 26 mmol/L (21-32); GLUCOSE,RANDOM 240 mg/dL (74-106); POTASSIUM 3.4 mmol/L (3.5-5.1); SGOT/AST 25 U/L (15-37); SGPT/ALT 28 U/L (13-61); SODIUM 137 mmol/L (136-145); TOT PROT 6.3 g/dl (6.4-8.2)
[2018-11-08] MEDS ORDERED: ACETAMINOPHEN 325 MG TABLET (FP) PO ONE (03:47)
--- NOTE | 2018-11-08 03:59 | PN ---
Teaching Attending Note Name of Resident: Francine Russell ATTENDING PHYSICIAN STATEMENT I saw and evaluated the patient. I reviewed the resident's note and discussed the case with the resident. I agree with the resident's findings and plan as documented. SUBJECTIVE: Patient is an 83 year old woman with a PMH of lumpectomy of left breast, pacemaker, CVA in 2008 (no residual deficits), HTN, HLD, NIDDM, AFIB (on coumadin) and colitis who presents to the ER with family for an episode of hypoglycemia. The history is provided by the family and son who was at the house with her. They state that she gave herself her insulin medication and a "couple" hours after, began to stumble down the hallway, held herself on the wall and slowly made her way down to the floor. The patient does not remember falling but per family, was in her normal state of health today without any complaints of fever, chills nausea, vomiting, chest pain, SOB, lightheadedness, dysuria, abdominal pain, or cough. Gives a history of recent weight loss. OBJECTIVE: Alert Vital Signs Period Temp Pulse Resp BP Sys/Batista Pulse Ox Last 24 Hr 97.7 F 112 20 160/90 98 HEENT: No Jaundice, eye redness or discharge, PERRLA, EOMI. Normocephalic, atraumatic. External ears are normal and hearing is grossly intact. No nasal discharge. Neck: Supple, nontender. No palpable adenopathy or thyromegaly. No JVD Chest: Good effort. Clear to auscultation and percussion. Heart: Regular. No S3, rub or murmur Abdomen: Not distended, soft, nontender and no HSM. No rebound or guarding. Normoactive bowel sounds. Ext: Peripheral pulses intact. No leg edema. Skin: Warm and dry. No petechiae, rash or ecchymosis. Neuro: Alert. Oriented x3. CN 2-12 grossly intact. Sensation grossly intact in all four extremities and DTR are symmetric. Home Medications Medication Instructions Recorded Diltiazem HCl [Cardizem Cd] 360 mg PO DAILY #0 cap.er.24h 07/05/13 Glipizide [Glucotrol -] 5 mg PO BID #0 tablet 07/05/13 Valsartan [Diovan] 320 mg PO DAILY #0 tablet 07/05/13 Vitamin B Complex [B-100 Complex] 1 each PO DAILY #0 tablet 07/05/13 Insulin Lispro Protamin/Lispro 10 unit SQ BID 07/23/15 [Humalog Mix 75-25 Kwikpen] Labetalol HCl 200 mg PO BID 07/23/15 Methimazole 5 mg PO DAILY 07/23/15 Digoxin [Lanoxin -] 0.125 mg PO DAILY 02/26/17 Donepezil HCl [Aricept -] 5 mg PO DAILY 02/26/17 Furosemide [Lasix -] 40 mg PO Q48H 02/26/17 Potassium Chloride [K-Dur -] 10 meq PO ASDIR 02/26/17 Warfarin Na [Coumadin] 5 mg PO ASDIR 02/26/17 Warfarin Na [Coumadin] 2.5 mg PO DAILY 05/23/17 Abnormal Lab Results 11/08/18 11/08/18 11/08/18 02:45 02:45 02:45 MCV 74.6 L MCH 25.3 L RDW 15.9 H Potassium 3.4 L BUN 30 H Random Glucose 240 H Alkaline Phosphatase 120 H Total Protein 6.3 L Albumin 3.2 L Ur Specific Martinez 1.006 L Urine Protein 2+ H Urine Glucose (UA) 1+ H Urine Blood 1+ H ASSESSMENT AND PLAN: 1. Symptomatic Hypoglycemia - No obvious precipitating infection. Hypoglycemia likely due to taking insulin and glipizide without enough caloric intake. Patient has recent weight loss and with advancing age and declining GFR will need to reduce glipizide and insulin dose. Got D50W and glucagon in the ER. Will give IV D5W. For now, we will hold the home diabetes drugs and implement sliding scale insulin regimen. Provide comprehensive diabetes care with patient teaching and counseling about the importance of adherence to prescribed diabetes regimen, euglycemia, eye care and foot care. Hypokalemia likely due to lasix therapy. Will check serum Mg+ and give oral KCL. Will check INR, get EKG and CXR. 2. Hypoalbuminemia - Possibly due to combined effects of proteinuria, malnutrition and inflammation associated with comorbid chronic conditions. Need to quantify 24 hour urine protein excretion, rule out diabetic nephropathy and maximize ARB therapy. Will ensure adequate dietary protein intake and also consult wellness rn. 3. Hypertension - Restart outpatient antihypertensive drugs and revise regimen to ensure smooth [id number] good BP control. Nonpharmacologic measures to control hypertension like weight loss, salt restriction and exercise discussed. 4. DVT prophylaxis - On coumadin 5. Advance directives - Full code
[2018-11-08] MEDS ORDERED: ACETAMINOPHEN 325 MG TABLET (FP) ONE ×2 (04:01→10:22)
[2018-11-08] MEDS ORDERED: POTASSIUM CHLORIDE ORAL LIQUID 20 MEQ/15 ML PO ONE (05:09)
[2018-11-08] MEDS ORDERED: DEXTROSE 5%-WATER - 1,000 ML IV SCH (05:15)
--- NOTE | 2018-11-08 05:17 | HP ---
CHIEF COMPLAINT: hypoglycemia PCP: Dr. Skaggs HISTORY OF PRESENT ILLNESS: 83 y/o F with PMH HTN, HLD, Type 2 DM, CVA (2008; without residual deficits), afib (on coumadin), s/p pacemaker (Medtronic; 2009), who presents to the ED with an episode of hypoglycemia that occurred yesterday. As per pt and family, at 7:30PM, pt took her humalog-insulin (75-25), however did not eat after her meal. By 11pm, she became unsteady on her feet while ambulating, and fell into the arms of her son. Denies head trauma or LOC. Son called an ambulance immediately, and she was brought to the ED for further evaluation. En route, pt was given glucagon. While in the ED, she was given an amp of D50, as well as orange juice. Repeat glucose on BMP 240, and at 5AM repeat fingerstick 142. Of note, pt follows with commissary production supervisor, Dr. Sow and has not had recent medication adjustments. She takes glipizide 5mg BID, as well as humalog-insulin 75-25 BID, which is adjusted according to her BG level, which is checked by her son before breakfast and dinner. Usually, pt's meds are scheduled based on a wake-up time of 9AM. However today pt slept in, waking up at 11am, thus she took her AM glipizide dose later than usual by 11:30AM. Son also notes that pt has lost significant amount of weight recently and has had decreased appetite. Denies MARTIN, fever, chills, chest pain or pressure, or changes in urinary or bowel function. She lives with one of her sons, and ambulates using a cane and has done physical therapy recently. Family is very active in her care. 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 lives with son, who helps take care of her. family members involved in her care Smoking: "a pack a day for many years" unable to quantify Alcohol: socially Drugs: denies Family History: denies Allergies Sulfa (Sulfonamide Antibiotics) Allergy (Mild, Verified 11/08/18 01:06) hives/rash HOME MEDICATIONS: Diltiazem HCl [Cardizem Cd] 360 mg PO DAILY Glipizide [Glucotrol -] 5 mg PO BID Insulin Lispro Protamin/Lispro [Humalog Mix 75-25 Kwikpen] BID; adjusted accordingly based on BG level Labetalol HCl 200 mg PO BID Methimazole 5 mg PO DAILY Digoxin [Lanoxin -] 0.125 mg PO DAILY Furosemide [Lasix -] 40 mg PO MOWEFR Warfarin Na [Coumadin -] 5 mg PO SUWETHFRSA Warfarin Na [Coumadin -] 2.5 mg PO MOTU Acetaminophen [Tylenol Arthritis] 650 mg PO Q6H PRN Cholecalciferol (Vitamin D3) [Vitamin D3] 50,000 unit PO Galantamine HBr [Razadyne ER] 16 mg PO DAILY Olmesartan Medoxomil [Benicar -] 40 mg PO DAILY REVIEW OF SYSTEMS CONSTITUTIONAL: +loss of appetite, weight change Absent: fever, chills, diaphoresis, generalized weakness, malaise, loss of appetite, weight change HEENT: Absent: rhinorrhea, nasal congestion, throat pain, throat swelling, difficulty swallowing, mouth swelling, ear pain, eye pain, visual changes CARDIOVASCULAR: Absent: chest pain, syncope, palpitations, irregular heart rate, lightheadedness , peripheral edema RESPIRATORY: Absent: cough, shortness of breath, dyspnea with exertion, orthopnea, wheezing, stridor, hemoptysis GASTROINTESTINAL: Absent: abdominal pain, abdominal distension, nausea, vomiting, diarrhea, constipation, melena, hematochezia GENITOURINARY: Absent: dysuria, frequency, urgency, hesitancy, hematuria, flank pain, genital pain MUSCULOSKELETAL: Absent: myalgia, arthralgia, joint swelling, back pain, neck pain SKIN: Absent: rash, itching, pallor HEMATOLOGIC/IMMUNOLOGIC: Absent: easy bleeding, easy bruising, lymphadenopathy, frequent infections ENDOCRINE: Absent: unexplained weight gain, unexplained weight loss, heat intolerance, cold intolerance NEUROLOGIC: Absent: headache, focal weakness or paresthesias, dizziness, unsteady gait, seizure, mental status changes, bladder or bowel incontinence PSYCHIATRIC: Absent: anxiety, depression, suicidal or homicidal ideation, hallucinations. PHYSICAL EXAMINATION Vital Signs - 24 hr 11/08/18 00:15 Temperature 97.7 F Pulse Rate 112 H Respiratory 20 Rate Blood Pressure 160/90 O2 Sat by Pulse 98 Oximetry (%) GENERAL: Pleasant. Resting in bed, AAOx3, in no acute distress. HEAD: Normal with no signs of trauma. EYES: Pupils equal, round and reactive to light, extraocular movements intact, sclera anicteric, +conjunctival injection b/l EARS, NOSE, THROAT: Ears normal, nares patent, oropharynx clear without exudates. Moist mucous membranes. NECK: Normal range of motion, supple. no cervical lymphadenopathy. LUNGS: Breath sounds equal, clear to auscultation bilaterally. No wheezes, and no crackles. +increased exp phase breathing HEART: +paced rate and rhythm, normal S1 and S2 without murmur, rub or gallop. ABDOMEN: Soft, nontender, not distended, normoactive bowel sounds, no guarding, no rebound, no masses. LOWER EXTREMITIES: 2+ pt pulses, warm, well-perfused. 1+ pitting edema b/l. NEUROLOGICAL: Cranial nerves II-XII intact. 5/5 motor strength UE, LE. sensation intact. PSYCHIATRIC: Cooperative. Good eye contact SKIN: Warm, dry, normal turgor Laboratory Tests 11/08/18 11/08/18 11/08/18 02:45 02:45 02:45 WBC 8.7 Hgb 11.0 Hct 32.5 Plt Count 167 Sodium 137 Potassium 3.4 L Chloride 103 Carbon Dioxide 26 BUN 30 H Creatinine 1.0 Random Glucose 240 H Urine Protein 2+ H Urine Glucose (UA) 1+ H Urine Blood 1+ H Urine WBC (Auto) 2 Urine RBC (Auto) 1 EKG: ordered, pending CXR: ordered, pending A1c: 10.1% ASSESSMENT/PLAN: 83 y/o F with PMH HTN, HLD, Type 2 DM, CVA (2008; without residual deficits), afib (on coumadin), s/p pacemaker (Medtronic; 2009), who presents to the ED with an episode of hypoglycemia that occurred yesterday. #Hypoglycemia likely 2/2 medication issue -likely d/t medication issue; as took glipizide later in the day, closer to humalog dose in PM -also with recent weight loss, decreased appetite and worsening GFR; glipizide dose needs to be lowered. -in elderly, do not need as tight of BG control - risks>benefits, ex. falls -will start on D5w 42 cc/hr, BGM q4h -A1c: 10.1% -hold glipizide. will likely need dose changed to 2.5mg BID on d/c #HTN-uncontrolled -c/w labetalol, cardiazem #Type 2DM -likely with diabetic nephropathy, as with hypoalbuminemia. f/u 24 hr urine protein -can reinstitute ISS once BG improves. will not start yet -c/w benicar; optimize #afib -f/u EKG - ordered, pending as per ED -c/w coumadin (2.5mg M, ) (5mg other days), digoxin -f/u INR #LE edema -as per family, without hx CHF. last ECHO 2012: EF ~60% -c/w lasix 40mg M,W,F -as well as KCl supplementation -Mg - WNL #Hypokalemia -likely 2/2 insulin, poor nutrition -will supplement with 40mEq KCl #hyperthyroid -on methimazole. will hold for now d/t recent lethargy and hypoglycemia #F/E/N D5w 42 cc/hr continue to follow lytes na controlled diet; will not start diabetic now d/t low sugar #PPX on coumadin. SCD's #Dispo tele monitoring close eye on sugars Visit type - Emergency Visit Emergency Visit: Yes ED Registration Date: 11/08/18 Care time: The patient presented to the Emergency Department on the above date and was hospitalized for further evaluation of their emergent condition. - New Patient This patient is new to me today: Yes Date on this admission: 11/08/18 - Critical Care Critical Care patient: No
[2018-11-08 08:30] LABS: PROTHROMBIN TIME (PATIENT) 53.4 SEC (9.7-13.0)
[2018-11-08 08:34] LABS: INR 4.46 (0.83-1.09)
[2018-11-08] MEDS: DIGOXIN 0.125 MG TABLET (FP) PO SCH (10:09)
[2018-11-08] MEDS ORDERED: ACETAMINOPHEN 325 MG TABLET (FP) PO PRN (10:09)
[2018-11-08] MEDS ORDERED: INSULIN (LEVEMIR) 100 UNITS/ML UNITS SQ ONE (10:42)
[2018-11-08] MEDS ORDERED: FUROSEMIDE 40 MG TABLET (FP) PO SCH (11:00)
--- NOTE | 2018-11-08 11:37 | EKG ---
Test Reason : Blood Pressure : / mmHG Vent. Rate : 060 BPM Atrial Rate : 032 BPM P-R Int : 000 ms QRS Dur : 210 ms QT Int : 536 ms P-R-T Axes : 000 -61 109 degrees QTc Int : 536 ms Ventricular-paced rhythm ABNORMAL ECG WHEN COMPARED WITH ECG OF 25-APR-2017 12:42, ELECTRONIC VENTRICULAR PACEMAKER HAS REPLACED ATRIAL FIBRILLATION VENT. RATE HAS DECREASED BY 29 BPM Confirmed by SONAM SANTIAGO, PRISCILLA ([id number]) on 11/08/2018 11:37:28 AM Referred By: Confirmed By:PRISCILLA MASTERS MD
[2018-11-08] MEDS: INSULIN SLIDING SCALE (NOVOLOG) 1 VIAL SQ SCH ×3 (12:47→21:08)
[2018-11-08] MEDS ORDERED: FUROSEMIDE 40 MG TABLET (FP) ONE (12:53)
[2018-11-08] MEDS ORDERED: INSULIN (NOVOLOG) ASPART 100 UNITS/ML 10ML VIAL ONE ×3 (12:53→20:44)
[2018-11-08] MEDS ORDERED: VALSARTAN 160 MG TABLET (UD) PO ONE (15:06)
[2018-11-08] MEDS ORDERED: LABETALOL HCL 100 MG TABLET (FP) PO ONE (15:06)
--- NOTE | 2018-11-08 15:13 | PN ---
Teaching Attending Note Name of Resident: John Staley ATTENDING PHYSICIAN STATEMENT I saw and evaluated the patient. I reviewed the resident's note and discussed the case with the resident. I agree with the resident's findings and plan as documented. SUBJECTIVE: no fever or chills . No abd pain . No MARTIN . NO CP . Lately weight loss and poor po intake OBJECTIVE: NAD CV : RRR Lungs: CTAB Ext : no edema ASSESSMENT AND PLAN: 83 y/o lady with h/o DM , colitis, PPM, lumpectomy, CVA, HTN, and HLP who presented with fall and was found to have acute hypoglycemia 1- Hypoglycemia: due to poor po intake and being on glipizide and insulin - dc glipizide - dc D5 IVF - cont SSI for now. - in am , will decide on her dose of insulin . a1c is 10 and she needs insulin 2- HTN: was not placed on her home meds - give stat labetalol and valsartan and resume as per home dosing 3- A fib: hold coumadin due to supratherapeutic INR. cont BB No need for tele . Med surg. dc in am if sugar remains good
--- NOTE | 2018-11-08 15:57 | PN ---
Physical Exam: SUBJECTIVE: Patient seen and examined at bedside this morning. Patient reporting right pelvic pain and b/l knee pain. 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 As per the son who witnessed the event, patient was trying to ambulate, felt unsteady and fell on his arma. Denies head trauma or LOC. EMS was called and patient was noted to be hypoglycemic with sugar at 30s, given glucagon and orange juice. On admission patient was started on D5W, repeat glucose on BMP revealed 240. Son also reported patient had decreased appetite recently and has lost weight. Patient denies any fever, chills, headache, dizziness, chest pain, SOB, palpitations, abdominal pain, diarrhea, urinary symptoms. OBJECTIVE: Vital Signs Period Temp Pulse Resp BP Sys/Batista Pulse Ox Last 24 Hr 97.7 F-98.3 F 66-112 17-20 160-170/52-90 98-98 GENERAL: The patient is awake, alert, and fully oriented, in no acute distress. HEAD: Normal with no signs of trauma. EYES: PERRLA, EOMI, sclera anicteric, conjunctiva clear. NECK: Trachea midline, full range of motion, supple. LUNGS: Breath sounds equal, clear to auscultation bilaterally. HEART: Regular rate and rhythm, S1, S2 without murmur, rub or gallop. ABDOMEN: Soft, nontender, nondistended, normoactive bowel sounds. EXTREMITIES: 2+ pulses, warm, well-perfused, no edema. SKIN: Warm, dry, normal turgor, no rashes or lesions noted Laboratory Results - last 24 hr 11/08/18 11/08/18 11/08/18 02:14 02:45 02:45 WBC 8.7 RBC 4.36 Hgb 11.0 Hct 32.5 MCV 74.6 L MCH 25.3 L MCHC 33.9 RDW 15.9 H Plt Count 167 MPV 8.9 D Absolute Neuts (auto) 6.9 Neutrophils % 78.7 D Lymphocytes % 9.4 D Monocytes % 9.6 Eosinophils % 1.1 Basophils % 1.2 Nucleated RBC % 0 PT with INR INR Sodium Potassium Chloride Carbon Dioxide Anion Gap BUN Creatinine Creat Clearance w eGFR POC Glucometer 69 Random Glucose Hemoglobin A1c % Calcium Magnesium Total Bilirubin AST ALT Alkaline Phosphatase Total Protein Albumin Urine Color Straw Urine Appearance Clear Urine pH 7.0 Ur Specific [place] 1.006 L Urine Protein 2+ H Urine Glucose (UA) 1+ H Urine Ketones Negative Urine Blood 1+ H Urine Nitrite Negative Urine Bilirubin Negative Urine Urobilinogen Negative Ur Leukocyte Esterase Negative Urine WBC (Auto) 2 Urine RBC (Auto) 1 Urine Mucus Rare 11/08/18 11/08/18 11/08/18 02:45 04:56 05:03 WBC RBC Hgb Hct MCV MCH MCHC RDW Plt Count MPV Absolute Neuts (auto) Neutrophils % Lymphocytes % Monocytes % Eosinophils % Basophils % Nucleated RBC % PT with INR 53.40 H INR 4.46 H* Sodium 137 Potassium 3.4 L Chloride 103 Carbon Dioxide 26 Anion Gap 8 BUN 30 H Creatinine 1.0 Creat Clearance w eGFR 53.21 POC Glucometer 172 Random Glucose 240 H Hemoglobin A1c % Calcium 9.1 Magnesium Total Bilirubin 0.2 AST 25 ALT 28 Alkaline Phosphatase 120 H Total Protein 6.3 L Albumin 3.2 L Urine Color Urine Appearance Urine pH Ur Specific [place] Urine Protein Urine Glucose (UA) Urine Ketones Urine Blood Urine Nitrite Urine Bilirubin Urine Urobilinogen Ur Leukocyte Esterase Urine WBC (Auto) Urine RBC (Auto) Urine Mucus 11/08/18 11/08/18 11/08/18 05:03 05:03 09:59 WBC RBC Hgb Hct MCV MCH MCHC RDW Plt Count MPV Absolute Neuts (auto) Neutrophils % Lymphocytes % Monocytes % Eosinophils % Basophils % Nucleated RBC % PT with INR INR Sodium Potassium Chloride Carbon Dioxide Anion Gap BUN Creatinine Creat Clearance w eGFR POC Glucometer 309 Random Glucose Hemoglobin A1c % 10.1 H Calcium Magnesium 1.9 Total Bilirubin AST ALT Alkaline Phosphatase Total Protein Albumin Urine Color Urine Appearance Urine pH Ur Specific [place] Urine Protein Urine Glucose (UA) Urine Ketones Urine Blood Urine Nitrite Urine Bilirubin Urine Urobilinogen Ur Leukocyte Esterase Urine WBC (Auto) Urine RBC (Auto) Urine Mucus 11/08/18 12:44 WBC RBC Hgb Hct MCV MCH MCHC RDW Plt Count MPV Absolute Neuts (auto) Neutrophils % Lymphocytes % Monocytes % Eosinophils % Basophils % Nucleated RBC % PT with INR INR Sodium Potassium Chloride Carbon Dioxide Anion Gap BUN Creatinine Creat Clearance w eGFR POC Glucometer 269 Random Glucose Hemoglobin A1c % Calcium Magnesium Total Bilirubin AST ALT Alkaline Phosphatase Total Protein Albumin Urine Color Urine Appearance Urine pH Ur Specific [place] Urine Protein Urine Glucose (UA) Urine Ketones Urine Blood Urine Nitrite Urine Bilirubin Urine Urobilinogen Ur Leukocyte Esterase Urine WBC (Auto) Urine RBC (Auto) Urine Mucus Active Medications Generic Name Dose Route Start Last Admin Trade Name Freq PRN Reason Stop Dose Admin Acetaminophen 650 mg 11/08/18 10:09 Tylenol - PO Q6H PRN PAIN Digoxin 0.125 mg 11/08/18 10:00 11/08/18 10:09 Lanoxin - PO 0.125 mg DAILY TI Administration Diltiazem HCl 360 mg 11/08/18 10:00 11/08/18 10:09 Cardizem Cd - PO 360 mg DAILY TI Administration Furosemide 40 mg 11/08/18 11:00 11/08/18 12:48 Lasix - PO 40 mg MoWeFr TI Administration Insulin Aspart 1 vial 11/08/18 11:00 11/08/18 12:47 Novolog Vial Sliding Scale - SQ 3 unit ACHS TI Administration Protocol Labetalol HCl 200 mg 11/08/18 22:00 Normodyne - PO BID TI Methimazole 5 mg 11/09/18 10:00 Tapazole - PO DAILY TI Valsartan 320 mg 11/09/18 10:00 Diovan - PO DAILY TI ASSESSMENT/PLAN: Patient is an 83 year old female with past medical history of HTN, HLD, IDDM, CVA (2008 without residual deficitis), AFib (on coumadin), s/p pacemaker, who presents to the ED with episode of weakness. Patient was noted to have hypoglycemia. #Hypoglycemia likely 2/2 medications and poor oral intake: resolved -Glipizide discontinued -IV D5W discontinued -Insulin sliding scale for now -Will monitor glucose #IDDM -A1c - 10.1 -Will hold Glipizide -On insulin sliding scale -BGM ACHS #Hypertension -Labetalol 200mg BID -Valsartan 320mg daily started -On cardizem 360mg #Atrial fibrillation -Rate controlled -Continue Digoxin 0.125mg daily. -Cardizem 360mg daily -Hold coumadin due to supratherapeutic INR #Supratherapeutic INR -INR 4.46 -Will hold coumadin for now -Will monitor INR #Hyperthyroidism -Continue home Methimazole 5mg daily #FEN -Not on any standing fluids -Hypokalemia (3.4), repleted -Routine bmp monitoring -Sodium controlled diet #Prophylaxis -SCDs -Coumadin put on hold for supratherapeutic INR #Disposition -full code -admit to tele Visit type - Emergency Visit Emergency Visit: Yes ED Registration Date: 11/08/18 Care time: The patient presented to the Emergency Department on the above date and was hospitalized for further evaluation of their emergent condition. - New Patient This patient is new to me today: Yes Date on this admission: 11/08/18 - Critical Care Critical Care patient: No
[2018-11-08] MEDS ORDERED: VALSARTAN 80 MG TABLET (UD) ONE (16:45)
[2018-11-08] MEDS ORDERED: LABETALOL HCL 100 MG TABLET (FP) ONE (16:45)
[2018-11-08] MEDS ORDERED: WARFARIN NA 5 MG TABLET (UD) PO SCH (18:00)
[2018-11-08] MEDS ORDERED: INSULIN (LEVEMIR) 100 UNITS/ML UNITS SQ SCH (22:00)
[2018-11-08] MEDS ORDERED: LABETALOL HCL 100 MG TABLET (FP) PO SCH (22:00)
[2018-11-09] MEDS ORDERED: hydrALAZINE HCL 10 MG TABLET PO ONE ×3 (02:51→06:03)
[2018-11-09 04:11] VITALS: BMI 21.1
[2018-11-09] MEDS: INSULIN SLIDING SCALE (NOVOLOG) 1 VIAL SQ SCH ×3 (06:07→17:47)
[2018-11-09 07:20] LABS: EOS % 2.2 % (0-4.5); HEMATOCRIT 29.3 % (32.4-45.2); HEMOGLOBIN 9.8 GM/dL (10.7-15.3); LYMPH % 19.7 % (8-40); MCH 24.5 pg (25.7-33.7); MCHC 33.4 g/dl (32.0-36.0); MEAN CELL VOLUME 73.4 fl (80-96); MEAN PLT VOLUME 9.1 fl (7.5-11.1); MONO % 13.8 % (3.8-10.2); NEUT % 63.3 % (42.8-82.8); PLATELET COUNT 172 K/MM3 (134-434); RBC 3.99 M/mm3 (3.60-5.2); RDW 15.7 % (11.6-15.6); WHITE BLOOD COUNT 7.2 K/mm3 (4.0-10.0)
[2018-11-09] MEDS: LABETALOL HCL 100 MG TABLET (FP) PO SCH ×2 (07:46→10:17)
[2018-11-09 07:59] LABS: INR 2.57 (0.83-1.09); PROTHROMBIN TIME (PATIENT) 30.6 SEC (9.7-13.0)
[2018-11-09 08:29] LABS: ANION GAP 8 MMOL/L (8-16); BLOOD UREA NITROGEN 29 mg/dL (7-18); CALCIUM 8.7 mg/dL (8.5-10.1); CHLORIDE 102 mmol/L (98-107); CO2 27 mmol/L (21-32); GLUCOSE,RANDOM 190 mg/dL (74-106); PHOSPHOROUS 2.9 mg/dL (2.5-4.9); POTASSIUM 3.6 mmol/L (3.5-5.1); SODIUM 137 mmol/L (136-145)
[2018-11-09] MEDS ORDERED: PT OWN MED DRAWER 7, Y5N ONE (09:50)
[2018-11-09] MEDS ORDERED: METHIMAZOLE 5 MG TABLET (FP) PO SCH (10:00)
[2018-11-09] MEDS ORDERED: VALSARTAN 160 MG TABLET (UD) PO SCH (10:00)
[2018-11-09] MEDS: DIGOXIN 0.125 MG TABLET (FP) PO SCH (10:16)
[2018-11-09 13:45] VITALS: TEMP 98.1
[2018-11-09 13:50] VITALS: BP 149/57; PULSE 68
--- NOTE | 2018-11-09 17:32 | PN ---
Teaching Attending Note Name of Resident: Ellen Francisco ATTENDING PHYSICIAN STATEMENT I saw and evaluated the patient. I reviewed the resident's note and discussed the case with the resident. I agree with the resident's findings and plan as documented. SUBJECTIVE: No fever or chills . No abd pain . no MARTIN , No CP OBJECTIVE: NAD CV : RRR Lungs: CTAB Ext : no edema ASSESSMENT AND PLAN: 83 y/o lady with h/o DM , colitis, PPM, lumpectomy, CVA, HTN, and HLP who presented with fall and was found to have acute hypoglycemia 1- Hypoglycemia: due to poor po intake and being on glipizide and insulin - change insulin regimen from 75/25 to levemir at a low dose and SSI. case was d/w her instruction librarian who agrees . will not resume glipizide at vt. did not tolerate metformin in past 2- HTN: with HTN urgency this am. increased labetalol to 300 BId and BP improved . cont this dose in addition to rest of home meds 3- A fib:resume coumadin at 3 mg. INR on Tuesday [place] home . d/w family and patient
--- NOTE | 2018-11-09 18:31 | DS ---
Physical Exam: SUBJECTIVE: Patient seen and examined at bedside this morning. No acute events overnight. Patient has no new complaints, lying comfortably in bed. Patient denies any fever, chills, headache, dizziness, chest pain, SOB, palpitations, abdominal pain, diarrhea, urinary symptoms. OBJECTIVE: Vital Signs Period Temp Pulse Resp BP Sys/Batista Pulse Ox Last 24 Hr 97.8 F-99.0 F 65-77 18-20 144-199/57-103 97-100 PHYSICAL EXAM GENERAL: The patient is awake, alert, and fully oriented, in no acute distress. HEAD: Normal with no signs of trauma. EYES: PERRLA, EOMI, sclera anicteric, conjunctiva clear. NECK: Trachea midline, full range of motion, supple. LUNGS: Breath sounds equal, clear to auscultation bilaterally. HEART: Regular rate and rhythm, S1, S2 without murmur, rub or gallop. ABDOMEN: Soft, nontender, nondistended, normoactive bowel sounds. EXTREMITIES: 2+ pulses, warm, well-perfused, no edema. SKIN: Warm, dry, normal turgor, no rashes or lesions noted LABS Laboratory Results - last 24 hr 11/08/18 11/09/18 11/09/18 20:51 05:17 06:30 WBC 7.2 RBC 3.99 Hgb 9.8 L Hct 29.3 L MCV 73.4 L MCH 24.5 L MCHC 33.4 RDW 15.7 H Plt Count 172 MPV 9.1 Absolute Neuts (auto) 4.6 Neutrophils % 63.3 Lymphocytes % 19.7 D Monocytes % 13.8 H Eosinophils % 2.2 D Basophils % 1.0 Nucleated RBC % 0 PT with INR INR Sodium Potassium Chloride Carbon Dioxide Anion Gap BUN Creatinine Creat Clearance w eGFR POC Glucometer 199 194 Random Glucose Calcium Phosphorus 11/09/18 11/09/18 11/09/18 06:30 06:30 11:43 WBC RBC Hgb Hct MCV MCH MCHC RDW Plt Count MPV Absolute Neuts (auto) Neutrophils % Lymphocytes % Monocytes % Eosinophils % Basophils % Nucleated RBC % PT with INR 30.60 H INR 2.57 H Sodium 137 Potassium 3.6 Chloride 102 Carbon Dioxide 27 Anion Gap 8 BUN 29 H Creatinine 1.0 Creat Clearance w eGFR 53.21 POC Glucometer 328 Random Glucose 190 H Calcium 8.7 Phosphorus 2.9 11/09/18 16:22 WBC RBC Hgb Hct MCV MCH MCHC RDW Plt Count MPV Absolute Neuts (auto) Neutrophils % Lymphocytes % Monocytes % Eosinophils % Basophils % Nucleated RBC % PT with INR INR Sodium Potassium Chloride Carbon Dioxide Anion Gap BUN Creatinine Creat Clearance w eGFR POC Glucometer 333 Random Glucose Calcium Phosphorus HOSPITAL COURSE: Date of Admission:11/08/18 Date of Discharge: 11/09/18 Patient is an 83 year old female with past medical history of HTN, HLD, IDDM, CVA (2008 without residual deficitis), AFib (on coumadin), s/p pacemaker, who presents to the ED with episode of weakness. Patient was noted to have hypoglycemia. Patient was started on D5w and hypoglycemia improved. Glipizide and home Insulin 75/25 discontinued. Patient placed on insulin sliding scale. Blood sugar continue to be elevated, Levemir 6units given. BGM remains stable. Patient was also noted to have supratherapeutic INR, coumadin put on hold and INR improved. Blood pressure also noted to be elevated and Labetalol was increased to 300mg BID. Patient was discharged on Insulin Levemir and ISS, with instructions to follow-up with PCP and real estate agent/broker. Minutes to complete discharge: 40 Discharge Summary Reason For Visit: HYPOGLYCEMIA Current Active Problems Hypoglycemia (Acute) Atrial fibrillation (Chronic) Hyperlipemia (Chronic) Hypertension (Chronic) Insulin dependent diabetes mellitus (Chronic) Condition: Improved - Instructions Diet, Activity, Other Instructions: Your visit You were admitted to the hospital because your were noted to have low blood sugar. This was likely caused by the medications. Your diabetes medications has been changed. Dr. Ballesteros is aware. Please follow- up with her within 1 week. Your INR was elevated. We have held your coumadin while you were here. Please take Coumadin 3mg daily. You will be given a prescription for a repeat INR. Please have your INR repeated on Tuesday (11/13/18). Your blood pressure was also noted to be high. We have increased your Labetalol dose to 300mg twice a day. Continue your other blood pressure medications. Medications Please take the following medications as prescribed: 1. Labetalol 300mg twice a day. 2. Coumadin 3mg q PM . 3. Insulin Levemir 6 units daily at bedtime. 4. Insulin Novolog three times a day with meals. Please follow instructions below: Blood glucose Insulin (units) 100-150 0 151-200 0 201-250 2 251-300 3 301-350 4 351-400 6 >400 8 Please STOP the following medications 1. Insulin Humalog 75/25 2. Glipizide 5mg Continue your other home medications. Care -Please monitor your blood sugar levels 3 times a day with meals, and take the Insulin Novolog as instructed above. -Take the insulin Novolog ONLY when you are eating. Follow-up -Please follow-up with your primary care doctor (Dr. Juárez) within 1 week. -Follow-up with your real estate agent/broker (Dr. Ballesteros) within 1 week. Please call the office to schedule an appointment. Additional info Call 911 or go to the ED if with any worsening fever, chills, weakness, headache , dizziness, chest pain, shortness of breath, abdominal pain, diarrhea, or any new concerns noted. Referrals: Angela Alva MD [Primary Care Provider] - 1 Week Martha Ballesteros MD [Staff Physician] - 1 Week Disposition: HOME - Home Medications Comprehensive Discharge Medication List: Ambulatory Orders Diltiazem HCl [Cardizem Cd] 360 mg PO DAILY #0 cap.er.24h 07/05/13 Methimazole 5 mg PO DAILY 07/23/15 Digoxin [Lanoxin -] 0.125 mg PO DAILY 02/26/17 Furosemide [Lasix -] 40 mg PO MOWEFR 02/26/17 Acetaminophen [Tylenol Arthritis] 650 mg PO Q6H PRN 11/08/18 Cholecalciferol (Vitamin D3) [Vitamin D3] 50,000 unit PO SA 11/08/18 Galantamine HBr [Razadyne ER] 16 mg PO DAILY 11/08/18 Olmesartan Medoxomil [Benicar -] 40 mg PO DAILY 11/08/18 Insulin (LOG) Aspart [NovoLOG -] See Protocol SQ ACHS #1 vial 11/09/18 Insulin Detemir [Levemir Flextouch] 6 unit SQ HS #1 insuln.pen 11/09/18 Labetalol HCl [Normodyne -] 300 mg PO BID #180 tablet 11/09/18 Miscellaneous Medical Supply [Outpatient Order] 1 each ASDIR #1 misc Warfarin Sodium [Coumadin] 3 mg PO DAILY #30 tablet 11/09/18 This patient is new to me today: No Emergency Visit: Yes ED Registration Date: 11/08/18 Care time: The patient presented to the Emergency Department on the above date and was hospitalized for further evaluation of their emergent condition. Critical Care patient: No - Discharge Referral Referred to [facility] No
== END 2018-11-09 18:38 | disposition home or self-care (01) | DRG 639 ==
LOC: SUPCPDRO 00:15 → JER 00:15 → JERBED 02:47 → J7W 20:23
PROVIDERS: ADMIT Internal Medicine; ATTEND Internal Medicine
DX: E11.649 Type 2 diabetes mellitus with hypoglycemia without coma (principal); I48.91 Unspecified atrial fibrillation; E78.5 Hyperlipidemia, unspecified; I10 Essential (primary) hypertension; Z79.4 Long term (current) use of insulin; Z95.0 Presence of cardiac pacemaker; R79.1 Abnormal coagulation profile; E05.90 Thyrotoxicosis, unspecified without thyrotoxic crisis or storm; E87.6 Hypokalemia; E11.21 Type 2 diabetes mellitus with diabetic nephropathy; T38.3X5A Adverse effect of insulin and oral hypoglycemic [antidiabetic] drugs, initial encounter
CPT/HCPCS: 36415; 71045-TC-FY; 80048; 80053; 81003; 81015; 82962; 83036; 83735; 84100; 85025; 85610; 93005; 93010; 97116-GP; 97161-GP; 99285-25

== ENCOUNTER 2018-12-22 13:38 | Emergency (ER) | payer OTHER ==
--- NOTE | 2018-12-22 14:04 | PDOC ---
History of Present Illness - General History Source: Patient Exam Limitations: No Limitations - History of Present Illness Initial Comments: 12/22/18 14:49 The patient is an 83-year-old female with a past medical history significant for HTN, HLD, Type 2 DM, CVA (2008; without residual deficits), afib (on coumadin), s/p pacemaker ([employer]; 2009) presents to the emergency department with a right leg wound and lower extremity edema. The patient presents with 2 weeks of worsening wound localized to the R. calf and worsening edema to the lower extremities. Denies chest pain, shortness of breath or fever. The patient reports she was seen by a botany laboratory assistant last week, who told her to elevate her leg, with noted improvement. The patient presents today secondary to the recurrence of the symptoms. Allergies: Sulfa. PCP: Dr. Skaggs <Hannah Kaminski - Last Filed: 12/22/18 16:27> <Samantha Siu - Last Filed: 12/22/18 16:48> - General Chief Complaint: Wound Stated Complaint: WOUND TO RIGHT LEG Time Seen by Provider: 12/22/18 14:03 Past History <Hannah Kaminski - Last Filed: 12/22/18 16:27> - Past Medical History Anemia: Yes Asthma: No Cancer: No Cardiac Disorders: Yes (ATRIAL FIBRILLATION,DEMAND PACEMAKER) CVA: Yes (2008 generalized weakness/residual) COPD: No CHF: No Dementia: No Diabetes: Yes (IDDM) GI Disorders: Yes (colitis) Disorders: No HTN: Yes Hypercholesterolemia: Yes Liver Disease: No Seizures: No Thyroid Disease: Yes - Surgical History Abdominal Surgery: No Appendectomy: Yes Cardiac Surgery: Yes (PACEMAKER placed in 2009) Cholecystectomy: No Lung Surgery: No Neurologic Surgery: No Orthopedic Surgery: No - Immunization History Immunization Up to Date: No - Suicide/Smoking/Psychosocial Hx Smoking Status: Yes Smoking History: Never smoked Have you smoked in the past 12 months: No Number of Cigarettes Smoked Daily: 0 Hx Alcohol Use: No Drug/Substance Use Hx: No Substance Use Type: None Hx Substance Use Treatment: No <Samantha Siu - Last Filed: 12/22/18 16:48> - Past Medical History Allergies/Adverse Reactions: Allergies Allergy/AdvReac Type Severity Reaction Status Date / Time Sulfa (Sulfonamide Allergy Mild hives/rash Verified 12/22/18 13:42 Antibiotics) Home Medications: Ambulatory Orders Acetaminophen [Tylenol] 650 mg PO PRN 12/22/18 Bacitracin - [Bacitracin Topical Ointment -] 1 applic TP DAILY #1 applic Digoxin [Lanoxin -] 0.125 mg PO DAILY 12/22/18 Diltiazem Cd [Cardizem Cd -] 360 mg PO DAILY 12/22/18 Ergocalciferol (Vitamin D2) [Vitamin D2] 50,000 unit PO WEEKLY 12/22/18 Furosemide [Lasix] 40 mg PO DAILY 12/22/18 Galantamine HBr [Razadyne ER] 8 mg PO DAILY 12/22/18 Glipizide [Glucotrol] 10 mg PO BID 12/22/18 Labetalol HCl [Normodyne -] 400 mg PO BID 12/22/18 Memantine HCl [Namenda -] 5 mg PO BID 12/22/18 Methimazole 5 mg PO DAILY 12/22/18 Olmesartan Medoxomil [Benicar] 40 mg PO DAILY 12/22/18 Potassium Chloride [K-Dur -] 10 meq PO BID 12/22/18 Pramipexole Dihydrochloride [Mirapex -] 0.25 mg PO DAILY 12/22/18 Warfarin Sodium [Coumadin] 5 mg PO DAILY 12/22/18 Review of Systems - Review of Systems Able to Perform ROS?: Yes Comments:: 12/22/18 14:47 GENERAL/CONSTITUTIONAL: No fever or chills. No weakness. HEAD, EYES, EARS, NOSE AND THROAT: No change in vision. No ear pain or discharge. No sore throat. CARDIOVASCULAR: No chest pain or shortness of breath. RESPIRATORY: No cough, wheezing, or hemoptysis. GASTROINTESTINAL: No nausea, vomiting, diarrhea or constipation. GENITOURINARY: No dysuria, frequency, or change in urination. MUSCULOSKELETAL: No joint or muscle swelling or pain. No neck or back pain. EXTREMITY: +Lower extremity edema. SKIN: +right calf wound. No rash NEUROLOGIC: No headache, vertigo, loss of consciousness, or change in strength/ sensation. ENDOCRINE: No increased thirst. No abnormal weight change. HEMATOLOGIC/LYMPHATIC: No anemia, easy bleeding, or history of blood clots. ALLERGIC/IMMUNOLOGIC: No hives or skin allergy. <Hannah Kaminski - Last Filed: 12/22/18 16:27> *Physical Exam - Vital Signs Last Vital Signs Temp Pulse Resp BP Pulse Ox 98 F 64 18 183/87 H 100 12/22/18 13:41 12/22/18 13:41 12/22/18 13:41 12/22/18 13:41 12/22/18 13:41 - Physical Exam Comments: 12/22/18 14:47 GENERAL: in no acute distress LUNGS: Breath sounds equal, clear to auscultation bilaterally. No wheezes, and no crackles HEART: Regular rate and rhythm, normal S1 and S2, no murmurs, rubs or gallops ABDOMEN: Soft, nontender, normoactive bowel sounds. No guarding, no rebound. No masses EXTREMITIES: +lower extremity 2+ pitting edema to the knees bilaterally, no erythema or tenderness. Neurological: Alert, awake and oriented. SKIN: +1 cm pressure ulcer back of the R. calf, no surrounding erythema and mild tenderness. <Hannah Kaminski - Last Filed: 12/22/18 16:27> Moderate Sedation - Procedure Monitoring Vital Signs: Procedure Monitoring Vital Signs Temperature 98 F 12/22/18 13:41 Pulse Rate 64 12/22/18 13:41 Respiratory Rate 18 12/22/18 13:41 Blood Pressure 183/87 H 12/22/18 13:41 O2 Sat by Pulse Oximetry (%) 100 12/22/18 13:41 <Hannah Kaminski - Last Filed: 12/22/18 16:27> ED Treatment Course - LABORATORY CBC & Chemistry Diagram: 12/22/18 14:26 12/22/18 14:26 <Hannah Kaminski - Last Filed: 12/22/18 16:27> - LABORATORY CBC & Chemistry Diagram: 12/22/18 14:26 12/22/18 14:26 <Samantha Siu - Last Filed: 12/22/18 16:48> Medical Decision Making - Medical Decision Making 12/22/18 16:[address] Tobar, left a message, waiting for a call back. <Hannah Kaminski - Last Filed: 12/22/18 16:27> - Medical Decision Making 12/22/18 16:45 Pt presents to the ED complaining of small wound to her calf and worsening of her chronic, bilateral, symmetric pitting edema despite increasing her dose of lasix by Dr. Tobar. Attempted to call Dr. Tobar. If unable to reach him, will instruct patient to increase dose of lasix for tomorrow only and call Dr. Tobar on Tuesday. <Samantha Siu - Last Filed: 12/22/18 16:48> *DC/Admit/Observation/Transfer - Attestations Scribe Attestion: 12/22/18 14:47 Documentation prepared by Hannah Kaminski, acting as medical territory manager for Samantha Siu MD. <Hannah Kaminski - Last Filed: 12/22/18 16:27> - Discharge Dispostion Decision to Admit order: No <Samantha Siu - Last Filed: 12/22/18 16:48> Diagnosis at time of Disposition: Edema Qualifiers: Edema type: unspecified Qualified Code(s): R60.9 - Edema, unspecified - Discharge Dispostion Disposition: HOME Condition at time of disposition: Good - Prescriptions Prescriptions: Bacitracin - [Bacitracin Topical Ointment -] 1 applic TP DAILY #1 applic - Referrals Referrals: Angela Alva MD [Primary Care Provider] - Kareem Deluca MD [Non Staff, Medical] - - Patient Instructions Printed Discharge Instructions: DI for Peripheral Edema -- Bilateral Additional Instructions: You came to the ED for a wound on your leg. It does not look infected at this time. Clean the wound daily with soap and water and use the ointment prescribed. Change the dressing every day. Call Dr. Deluca for follow up on Tuesday. Return immediately to the ED for fever, spreading redness and tenderness, pus coming from the wound. You also have swelling in your legs. You should continue to take the lasix. You should call Dr. Tobar for follow up on Tuesday. Take two pills of the lasix tomorrow, then return to your usual dose unless directed by Dr. Tobar. REturn immediately to the ED for chest pain or shortness of breath , or other new or worsening symptoms. - Post Discharge Activity
[2018-12-22 14:17] VITALS: BP 183/87; PULSE 64; TEMP 98; BMI 23.3
[2018-12-22 14:53] LABS: BASO % 1.1 % (0-2.0); EOS % 2.2 % (0-4.5); HEMATOCRIT 31.3 % (32.4-45.2); HEMOGLOBIN 9.8 GM/dl (10.7-15.3); LYMPH % 20.7 % (8-40); MCH 23.8 pg (25.7-33.7); MCHC 31.1 g/dl (32.0-36.0); MEAN CELL VOLUME 76.6 fl (80-96); MEAN PLT VOLUME 8.3 fl (7.5-11.1); MONO % 17.4 % (3.8-10.2); NEUT % 58.6 % (42.8-82.8); PLATELET COUNT 247 K/MM3 (134-434); RBC 4.09 M/mm3 (3.60-5.2); RDW 15.4 % (11.6-15.6); WHITE BLOOD COUNT 6.1 K/mm3 (4.0-10.8)
[2018-12-22 15:30] LABS: ALBUMIN 3.4 g/dl (3.4-5.0); ALK PHOS 113 U/L (45-117); ANION GAP 10 MMOL/L (8-16); BILIRUBIN,TOTAL 0.4 mg/dl (0.2-1); BLOOD UREA NITROGEN 28 mg/dl (7-18); CALCIUM 9.3 mg/dl (8.5-10); CHLORIDE 105 mmol/L (98-107); CO2 25 mmol/L (21-32); GLUCOSE,RANDOM 110 mg/dl (74-106); POTASSIUM 3.9 mmol/L (3.5-5.1); SGOT/AST 25 U/L (15-37); SGPT/ALT 20 U/L (13-61); SODIUM 140 mmol/L (136-145); TOT PROT 6.1 g/dl (6.4-8.2)
[2018-12-22] MEDS ORDERED: BACITRACIN 15 GM TUBE TOPICAL OINTMENT TP ONE (16:37)
[2018-12-22 16:54] LABS: N-TERMINAL BNP 1997.3 pg/ml (5-450)
== END 2018-12-22 17:25 | disposition home or self-care (01) ==
LOC: FER 13:38
DX: R60.9 Edema, unspecified (principal); I10 Essential (primary) hypertension; Z86.73 Personal history of transient ischemic attack (TIA), and cerebral infarction without residual deficits; I48.91 Unspecified atrial fibrillation; Z95.0 Presence of cardiac pacemaker
CPT/HCPCS: 36415; 71045-TC-FY; 80053; 83880; 85025; 99283-25

== ENCOUNTER 2019-11-26 06:59 | Inpatient (IN) | payer OTHER ==
--- NOTE | 2019-11-26 08:07 | PDOC ---
History of Present Illness - General Chief Complaint: Shortness of Breath Stated Complaint: SOB,LEG SWELLING AND PAIN History Source: Patient, Family Exam Limitations: Dementia - History of Present Illness Initial Comments: 11/26/19 08:04 84YOF with h/o HTN, HLD, IDDM (on LA and SS insulin), CVA (2008 w/o stated residual generalized weakness), A-fib (on coumadin), s/p pacemaker (Medtronic placed 2009), hyperthyroidism, and colitis who p/w BLE edema worse than normal, SOB, and wheezing worsening for the past week. No chart or reported h/o CHF although last [facility] documented echo was in 2012 and showed only biatrial dilatation (moderate to severe) without RV or LV hypertrophy or dysfunction, and she is on 120 Lasix PO daily stated per Dr. Tobar. The patient has chronic inability to lay down flat stated d/t osteoarthritis and notes no change lately. She and the son note she has had worsened ability to ambulate over the past few weeks d/t generalized weakness. They explain she has been started on HCTZ and gabapentin in the past 1-2 months for elevated BP and RLE neuropathic pain, respectively. She notes worsened pain in the RLE over the past few weeks which is new. PCP is Dr. Vu, Physician Allergist Immunologist is Dr. Tobar. Past History - Past Medical History Allergies/Adverse Reactions: Allergies Allergy/AdvReac Type Severity Reaction Status Date / Time Sulfa (Sulfonamide Allergy Mild hives/rash Verified 02/09/19 13:29 Antibiotics) Home Medications: Ambulatory Orders Acetaminophen [Non-Aspirin Pain Relief] 500 mg PO PRN 11/26/19 Centrum Silver Tablet PO DAILY 11/26/19 Digoxin [Lanoxin -] 0.125 mg PO DAILY 11/26/19 Diltiazem HCl [Diltiazem 24Hr ER] 360 mg PO DAILY 11/26/19 Donepezil HCl [Aricept -] 5 mg PO DAILY 11/26/19 Furosemide [Lasix] 80 mg PO DAILY 11/26/19 Gabapentin [Neurontin -] 300 mg PO Q8H 11/26/19 Glipizide [Glucotrol -] 5 mg PO BID 11/26/19 Humalog Mix 75-25 Kwikpen SQ PRN 11/26/19 Labetalol HCl [Normodyne -] 400 mg PO TID 11/26/19 Memantine HCl 5 mg PO BID 11/26/19 Methimazole 5 mg PO DAILY 11/26/19 Olmesartan Medoxomil [Benicar -] 40 mg PO DAILY 11/26/19 Potassium Chloride [K-Dur -] 10 meq PO BID 11/26/19 Vit D3-Vit K/Berberine/Hops [Ostera Tablet] 11/26/19 Warfarin Na [Coumadin -] 2.5 mg PO DAILY@1800 11/26/19 Warfarin Na [Coumadin -] 5 mg PO ONCE 11/26/19 hydrALAZINE HCL [Apresoline -] 25 mg PO TID 11/26/19 Anemia: Yes Asthma: No Cancer: No Cardiac Disorders: Yes (ATRIAL FIBRILLATION,DEMAND PACEMAKER) CVA: Yes (2009 generalized weakness/residual) COPD: No CHF: No Dementia: No Diabetes: Yes (IDDM) GI Disorders: Yes (colitis) Disorders: No HTN: Yes Hypercholesterolemia: Yes Liver Disease: No Seizures: No Thyroid Disease: Yes - Surgical History Abdominal Surgery: No Appendectomy: Yes Cardiac Surgery: Yes (PACEMAKER placed in 2009) Cholecystectomy: No Lung Surgery: No Neurologic Surgery: No Orthopedic Surgery: No - Immunization History Immunization Up to Date: No - Psycho Social/Smoking Cessation Hx Smoking Status: Yes Smoking History: Never smoked Have you smoked in the past 12 months: No Number of Cigarettes Smoked Daily: 0 Information on smoking cessation initiated: No Hx Alcohol Use: No Drug/Substance Use Hx: No Substance Use Type: None Hx Substance Use Treatment: No Review of Systems - Review of Systems Able to Perform ROS?: Yes Comments:: 11/26/19 08:57 GEN: generalized weakness, no fever, chills, or malaise HEENT: no ear pain, congestion, sore throat, vision change, or eye pain CV: lightheadedness, edema, no chest pain, palpitations, or syncope RESP: wheezing, SOB, no cough GI: no abdominal pain, nausea, vomiting, diarrhea, constipation, or rectal bleed : no dysuria, hematuria, or discharge MSK: leg pain, no muscle weakness or pain, no joint pain NEURO: no headache, vertigo, numbness, tingling, or focal weakness PSYCH: no SI, HI, or behavior change SKIN: no jaundice, rash, lesions, or unexplained bruises ROS otherwise negative except as noted in HPI *Physical Exam - Vital Signs Last Vital Signs Temp Pulse Resp BP Pulse Ox 97.7 F 78 16 202/72 H 100 11/26/19 07:23 11/26/19 07:23 11/26/19 07:23 11/26/19 07:23 11/26/19 07:23 - Physical Exam 11/26/19 08:59 GENERAL: well-appearing, A/Ox4, no distress, answers questions appropriately, son at bedside appears supportive and aids in providing medical history HEENT: PERRLA, EOMI, moist mucous membranes NECK/BACK: no midline ttp, no spinal stepoff or deformity, no hematoma, full ROM , neck supple CARDIOVASCULAR: irregularly irregular, 1/6 MICHAEL, strong peripheral pulses, capillary refill <2 seconds, extremities wwp, 3+ BLE pitting edema LUNGS/RESPIRATORY: no respiratory distress, bilateral faint wheezing and crackles GI/ABDOMEN: symmetric [id number], normoactive BS, soft, no ttp, no midline pulsatile masses : no CVA tenderness EXTREMITIES: no muscle atrophy, no acute deformity SKIN: warm and dry, no pallor, no jaundice, no rash, no bruising, no skin breakdown, no cuts, no lesions NEUROLOGICAL: GCS 15, CN II-XII grossly intact, 5/5 strength proximally and distally, no facial droop Heart Score/ECG Review #1 A-fib, ventricular rate 74, normal axis, TWI inferiorly and anterolaterally, no [facility] ED Treatment Course - LABORATORY CBC & Chemistry Diagram: 11/28/19 05:20 11/30/19 06:59 Medical Decision Making - Medical Decision Making 11/26/19 09:25 Pt with h/o CHF who p/w SOB, cough, orthopnea same as their prior CHF. Initial Vital Signs Temp Pulse Resp BP Pulse Ox 97.7 F 78 16 202/72 H 100 11/26/19 07:23 11/26/19 07:23 11/26/19 07:23 11/26/19 07:23 11/26/19 07:23 Exam: As noted in Physical Exam section. DDX IBNLT: most likely CHF exacerbation. Less likely pulmonary edema, COPD, asthma, other lung disease, PNA/bronchitis, anemia, ACS. Unlikely pericarditis, tamponade, AD, PE, PTX, allergic reaction, malignancy (e.g. causing pericardial effusion or vascular shunt), other infection, pulmonary HTN, etc. W/U ordered: Labs EKG CXR TX ordered: Lasix IV push, O2, BiPAP, Pt positioned with head of bed up EKG: Reviewed; results as noted in ECG Review section. RAD/CHEST X-RAY PORTABLE* Chest: Chest pain A single view the chest is been submitted. Since 12/22/2018 there is a weaker inspiration with large heart, sclerotic knob, pacemaker and some congestive changes. The angles are sharp. The soft tissues are intact. There are degenerative findings. Impression : Large heart. Pacemaker. Congestive changes. Laboratory Tests 11/26/19 11/26/19 11/26/19 08:30 08:30 08:30 WBC 5.4 RBC 3.86 Hgb 9.4 L Hct 29.3 L MCV 75.9 L MCH 24.5 L MCHC 32.3 RDW 15.2 Plt Count 201 MPV 9.5 Absolute Neuts (auto) 3.2 Neutrophils % 59.8 Lymphocytes % 19.4 Monocytes % 15.5 H Eosinophils % 3.6 Basophils % 1.7 Nucleated RBC % 0 PT with INR INR Sodium 142 Potassium 3.8 Chloride 109 H Carbon Dioxide 25 Anion Gap 8 BUN 27.9 H Creatinine 1.1 Est GFR (CKD-EPI)AfAm 54.15 Est GFR (CKD-EPI)NonAf 46.72 Random Glucose 69 L Calcium 9.6 Magnesium 2.0 Total Bilirubin 0.5 AST 27 ALT 27 Alkaline Phosphatase 121 H Creatine Kinase 196 H Creatine Kinase Index 0.8 CK-MB (CK-2) 1.7 Troponin I < 0.02 B-Natriuretic Peptide 3829.0 H Total Protein 6.4 Albumin 3.4 TSH 3.00 Free T4 0.98 Free T3 2.4 Resin T3 Uptake 32.5 11/26/19 08:30 WBC RBC Hgb Hct MCV MCH MCHC RDW Plt Count MPV Absolute Neuts (auto) Neutrophils % Lymphocytes % Monocytes % Eosinophils % Basophils % Nucleated RBC % PT with INR 22.60 H INR 1.90 H Sodium Potassium Chloride Carbon Dioxide Anion Gap BUN Creatinine Est GFR (CKD-EPI)AfAm Est GFR (CKD-EPI)NonAf Random Glucose Calcium Magnesium Total Bilirubin AST ALT Alkaline Phosphatase Creatine Kinase Creatine Kinase Index CK-MB (CK-2) Troponin I B-Natriuretic Peptide Total Protein Albumin TSH Free T4 Free T3 Resin T3 Uptake ADMIT The Pt is unsafe for discharge at this time. They require further hospital observation, workup, and treatment. Pt needs IV meds 2/2 likely bowel edema as PO medications likely less effective. Call placed to Dr. Mancia on for admissions. In agreement on admission plan, to Tele Inpatient, Decision to Admit placed. Dr. Mancia placing orders. Discharge - Discharge Information Problems reviewed: Yes Clinical Impression/Diagnosis: Subtherapeutic anticoagulation CHF exacerbation Qualifiers: Heart failure type: unspecified Qualified Code(s): I50.9 - Heart failure, unspecified High blood pressure Qualifiers: Hypertension type: unspecified Qualified Code(s): I10 - Essential (primary) hypertension Condition: Stable Disposition: HOME - Admission Yes - Follow up/Referral - Patient Discharge Instructions - Post Discharge Activity
--- NOTE | 2019-11-26 08:29 | PDOC ---
Attending Attestation - Resident Resident Name: EveConnie - ED Attending Attestation I have performed the following: I have examined & evaluated the patient, The case was reviewed & discussed with the resident, I agree w/resident's findings & plan, Exceptions are as noted - HPI HPI: 11/26/19 12:19 84YOF with h/o HTN, HLD, IDDM (on LA and SS insulin), CVA (2008 w/o stated residual generalized weakness), A-fib (on coumadin), s/p pacemaker (Medtronic placed 2009), hyperthyroidism, and colitis who presents to the emergency department with worsening shortness of breath wheezing and worsening edema. Symptoms moderate persistent constant no exacerbating or alleviating factors - Physicial Exam PE: 11/26/19 12:24 Vitals: Triage Vital signs reviewed General Appearance: No acute distress, well nourished well developed, Head: Atraumatic, Cardiac: Regular rate and rhythym, no murmurs, no rubs, no gallops, Lungs: Crackles at the bases bl Abdomen: Soft, non distended, normal bowel sounds, non tender to palpation Extremities: Full range of motion to all extremities, no cyanosis, clubbing, or edema Skin: Warm and dry, no rashes or lesions, no rash, no petechiae Psych: Normal mood, normal affect - Medical Decision Making 11/26/19 12:27 Crackles at the bases during exam exam not 84 years old with multiple medical problems presents to the emergency department with CHF exacerbation IV Lasix given in ED however patient remains symptomatic Patient require admission for continued IV diuresis and further management. Heart Score/ECG Review - ECG Impressions Comment:: 11/26/19 16:15 EKG demonstrates A. fib with ST depressions inferior laterally Interpreted by me.
[2019-11-26] MEDS ORDERED: LABETALOL HCL 5 MG/1 ML (100MG/20 ML VIAL) IVPUSH ONE (09:03)
[2019-11-26 09:10] LABS: BASO % 1.7 % (0-2.0); EOS % 3.6 % (0-4.5); HEMATOCRIT 29.3 % (32.4-45.2); HEMOGLOBIN 9.4 GM/dL (10.7-15.3); LYMPH % 19.4 % (8-40); MCH 24.5 pg (25.7-33.7); MCHC 32.3 g/dl (32.0-36.0); MEAN CELL VOLUME 75.9 fl (80-96); MEAN PLT VOLUME 9.5 fl (7.5-11.1); MONO % 15.5 % (3.8-10.2); NEUT % 59.8 % (42.8-82.8); PLATELET COUNT 201 K/MM3 (134-434); RBC 3.86 M/mm3 (3.60-5.2); RDW 15.2 % (11.6-15.6); WHITE BLOOD COUNT 5.4 K/mm3 (4.0-10.0)
[2019-11-26] MEDS ORDERED: LABETALOL HCL 5 MG/1 ML (200MG/40ML VIAL) IVPB ONE (09:12)
[2019-11-26] MEDS: LABETALOL HCL 5 MG/1 ML (100MG/20 ML VIAL) IVPUSH ONE ×2 (09:15→09:21)
[2019-11-26] MEDS ORDERED: FUROSEMIDE 40 MG/4 ML INJECTABLE VIAL IVPUSH ONE (09:23)
[2019-11-26] MEDS ORDERED: FUROSEMIDE 40 MG/4 ML INJECTABLE VIAL ONE (09:26)
[2019-11-26 09:38] LABS: INR 1.9 (0.83-1.09); PROTHROMBIN TIME (PATIENT) 22.6 SEC (9.7-13.0)
[2019-11-26 09:39] LABS: ALBUMIN 3.4 g/dl (3.4-5.0); ALK PHOS 121 U/L (45-117); ANION GAP 8 MMOL/L (8-16); BILIRUBIN,TOTAL 0.5 mg/dL (0.2-1); BLOOD UREA NITROGEN 27.9 mg/dL (7-18); CALCIUM 9.6 mg/dL (8.5-10.1); CHLORIDE 109 mmol/L (98-107); CO2 25 mmol/L (21-32); CREATININE 1.1 mg/dL (0.55-1.3); GLUCOSE,RANDOM 69 mg/dL (74-106); POTASSIUM 3.8 mmol/L (3.5-5.1); SGOT/AST 27 U/L (15-37); SGPT/ALT 27 U/L (13-61); SODIUM 142 mmol/L (136-145); TOT PROT 6.4 g/dl (6.4-8.2)
--- NOTE | 2019-11-26 10:00 | EKG ---
Test Reason : Blood Pressure : / mmHG Vent. Rate : 074 BPM Atrial Rate : 241 BPM P-R Int : 000 ms QRS Dur : 092 ms QT Int : 392 ms P-R-T Axes : 000 048 -72 degrees QTc Int : 435 ms ATRIAL FIBRILLATION ABNORMAL ECG WHEN COMPARED WITH ECG OF 08-NOV-2018 02:14, No electronic pacemaker beats present Confirmed by Gavino Rain ([id number]) on 11/26/2019 10:00:43 AM Referred By: Confirmed By:Gavino Rain
--- NOTE | 2019-11-26 11:51 | HP ---
Admitting History and Physical - Primary Care Physician PCP: Liang Mancia - Admission Chief Complaint: sob. ehsan edema History of Present Illness: 84YOF with h/o HTN, HLD, IDDM (on LA and SS insulin), CVA (2008 w/o stated residual generalized weakness), A-fib (on coumadin), s/p pacemaker (Medtronic placed 2009), hyperthyroidism, and colitis who p/w BLE edema worse than normal, SOB, and wheezing worsening for the past week. No chart or reported h/o CHF although last [facility] documented echo was in 2012 and showed only biatrial dilatation (moderate to severe) without RV or LV hypertrophy or dysfunction, and she is on 120 Lasix PO daily stated per Dr. Tobar. The patient has chronic inability to lay down flat stated d/t osteoarthritis and notes no change lately. She and the son note she has had worsened ability to ambulate over the past few weeks d/t generalized weakness. They explain she has been started on HCTZ and gabapentin in the past 1-2 months for elevated BP and RLE neuropathic pain, respectively. She notes worsened pain in the RLE over the past few weeks which is new. PCP is Dr. Vu, Direct Support Specialist is Dr. Tobar. 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 Cardiovascular: Yes: AFIB, HTN, Hyperlipdemia Endocrine: Yes: Diabetes Mellitus - Smoking History Smoking history: Never smoked Have you smoked in the past 12 months: No Aproximately how many cigarettes per day: 0 - Alcohol/Substance Use Hx Alcohol Use: No Home Medications - Allergies Allergies/Adverse Reactions: Allergies Allergy/AdvReac Type Severity Reaction Status Date / Time Sulfa (Sulfonamide Allergy Mild hives/rash Verified 02/09/19 13:29 Antibiotics) - Home Medications Home Medications: Ambulatory Orders Acetaminophen [Non-Aspirin Pain Relief] 500 mg PO PRN 11/26/19 Centrum Silver Tablet PO DAILY 11/26/19 Digoxin [Lanoxin -] 0.125 mg PO DAILY 11/26/19 Diltiazem HCl [Diltiazem 24Hr ER] 360 mg PO DAILY 11/26/19 Donepezil HCl [Aricept -] 5 mg PO DAILY 11/26/19 Furosemide [Lasix -] 40 mg PO DAILY 11/26/19 Furosemide [Lasix] 80 mg PO DAILY 11/26/19 Gabapentin [Neurontin -] 300 mg PO Q8H 11/26/19 Glipizide [Glucotrol -] 5 mg PO BID 11/26/19 Humalog Mix 75-25 Kwikpen SQ PRN 11/26/19 Labetalol HCl [Normodyne -] 400 mg PO TID 11/26/19 Memantine HCl 5 mg PO BID 11/26/19 Methimazole 5 mg PO DAILY 11/26/19 Olmesartan Medoxomil [Benicar -] 40 mg PO DAILY 11/26/19 Potassium Chloride [K-Dur -] 10 meq PO BID 11/26/19 Vit D3-Vit K/Berberine/Hops [Ostera Tablet] 11/26/19 Warfarin Na [Coumadin -] 2.5 mg PO DAILY@1800 11/26/19 Warfarin Na [Coumadin -] 5 mg PO ONCE 11/26/19 hydrALAZINE HCL [Apresoline -] 25 mg PO TID 11/26/19 Physical Examination Vital Signs: Vital Signs Temperature 97.7 F 11/26/19 07:23 Pulse Rate 78 11/26/19 07:23 Respiratory Rate 16 11/26/19 07:23 Blood Pressure 202/72 H 11/26/19 07:23 O2 Sat by Pulse Oximetry (%) 100 11/26/19 07:23 Constitutional: Yes: No Distress HENT: Yes: Atraumatic Neck: Yes: Supple Cardiovascular: Yes: Regular Rate and Rhythm Respiratory: Yes: Rales, Wheezes Extremities: Yes: WNL Neurological: Yes: Alert, Oriented Labs: CBC, BMP 11/26/19 08:30 11/26/19 08:30 Imaging - Results X-ray: Report Reviewed Problem List - Problems (1) CHF exacerbation Assessment/Plan: iv lasix continue other meds cardio on board Code(s): I50.9 - HEART FAILURE, UNSPECIFIED Qualifiers: Heart failure type: unspecified Qualified Code(s): I50.9 - Heart failure, unspecified (2) Subtherapeutic anticoagulation Assessment/Plan: on coumadin fu inr Code(s): Z51.81 - ENCOUNTER FOR THERAPEUTIC DRUG LEVEL MONITORING; Z79.01 - FDC (CURRENT) USE OF ANTICOAGULANTS (3) Hypertension Assessment/Plan: on meds monitor Code(s): I10 - ESSENTIAL (PRIMARY) HYPERTENSION Qualifiers: Hypertension type: unspecified Qualified Code(s): I10 - Essential (primary ) hypertension (4) Atrial fibrillation Code(s): I48.91 - UNSPECIFIED ATRIAL FIBRILLATION (5) Hyperlipemia Code(s): E78.5 - HYPERLIPIDEMIA, UNSPECIFIED (6) Insulin dependent diabetes mellitus Code(s): E11.9 - TYPE 2 DIABETES MELLITUS WITHOUT COMPLICATIONS; Z79.4 - FDC (CURRENT) USE OF INSULIN Assessment/Plan Laboratory Tests 11/26/19 11/26/19 11/26/19 08:30 08:30 08:30 WBC 5.4 RBC 3.86 Hgb 9.4 L Hct 29.3 L MCV 75.9 L MCH 24.5 L MCHC 32.3 RDW 15.2 Plt Count 201 MPV 9.5 Absolute Neuts (auto) 3.2 Neutrophils % 59.8 Lymphocytes % 19.4 Monocytes % 15.5 H Eosinophils % 3.6 Basophils % 1.7 Nucleated RBC % 0 PT with INR 22.60 H INR 1.90 H Sodium 142 Potassium 3.8 Chloride 109 H Carbon Dioxide 25 Anion Gap 8 BUN 27.9 H Creatinine 1.1 Est GFR (CKD-EPI)AfAm 54.15 Est GFR (CKD-EPI)NonAf 46.72 Random Glucose 69 L Calcium 9.6 Magnesium 2.0 Total Bilirubin 0.5 AST 27 ALT 27 Alkaline Phosphatase 121 H Creatine Kinase 196 H Creatine Kinase Index 0.8 CK-MB (CK-2) 1.7 Troponin I < 0.02 B-Natriuretic Peptide 3829.0 H Total Protein 6.4 Albumin 3.4 TSH 3.00 Free T4 0.98 Resin T3 Uptake 32.5 Active Medications Generic Name Dose Route Start Last Admin Trade Name Freq PRN Reason Stop Dose Admin Digoxin 0.125 mg 11/27/19 10:00 Lanoxin - PO DAILY TI Diltiazem HCl 360 mg 11/27/19 10:00 Cardizem Cd - PO DAILY TI Furosemide 40 mg 11/27/19 10:00 Lasix - PO DAILY TI Glipizide 10 mg 11/26/19 16:30 Glucotrol - PO BIDI TI Labetalol HCl 400 mg 11/26/19 22:00 Normodyne - PO BID TI Memantine 5 mg 11/27/19 10:00 Namenda - PO DAILY [facility] Methimazole 5 mg 11/27/19 10:00 Tapazole - PO DAILY [facility] Non-Formulary Medication 8 mg 11/27/19 10:00 Galantamine Hbr [Razadyne Er] PO DAILY [facility] Potassium Chloride 10 meq 11/26/19 22:00 K-Dur - PO BID [facility] Pramipexole Dihydrochloride 0.25 mg 11/27/19 10:00 Mirapex - PO DAILY [facility] Valsartan 320 mg 11/27/19 10:00 Diovan - PO DAILY [facility] Warfarin Sodium 5 mg 11/26/19 18:00 Coumadin - PO DAILY@1800 [facility]
[2019-11-26] MEDS ORDERED: ACETAMINOPHEN 500 MG TABLET (FP) PO ONE (12:45)
[2019-11-26] MEDS ORDERED: GABAPENTIN 300 MG CAPSULE PO ONE (12:52)
[2019-11-26] MEDS ORDERED: ACETAMINOPHEN 325 MG TABLET (FP) ONE (12:57)
[2019-11-26] MEDS ORDERED: GABAPENTIN 100 MG CAPSULE ONE (12:58)
--- NOTE | 2019-11-26 13:33 | PN ---
Progress Note (short form) - Note Progress Note: Known to me from office: PMH Permanent AF on coumadin s/p PPM Remote hx of hypertensive ICH > 5 years ago Splenic infarct while off AC chronic HTN CKD Chronic diastolic CHF PAD Peripheral neuropathy Full consult to follow
--- NOTE | 2019-11-26 16:29 | CON.CARD ---
Consult Consult Specialty:: Cardiology Referred by:: Medicine Reason for Consultation:: shortness of breath, CHF - History of Present Illness Chief Complaint: short of breath History of Present Illness: 84F h/o HTN, HLD, DM, CVA, Afib, ppm (Medtronic), hyperthyroidism with edema, dyspnea x [address] Tobar for cardio. Has chronic orthopnea, notse that she had worsening weakness and shortness of breathw ith exertion and more edema in kaleb lower ext, has been compliant with lasix - Alcohol/Substance Use Hx Alcohol Use: No - Smoking History Smoking history: Never smoked Have you smoked in the past 12 months: No Aproximately how many cigarettes per day: 0 Home Medications - Allergies Allergies/Adverse Reactions: Allergies Allergy/AdvReac Type Severity Reaction Status Date / Time Sulfa (Sulfonamide Allergy Mild hives/rash Verified 02/09/19 13:29 Antibiotics) - Home Medications Home Medications: Ambulatory Orders Digoxin [Lanoxin -] 1 tab PO DAILY 01/05/19 Diltiazem Cd [Cardizem Cd -] 360 mg PO DAILY 01/05/19 Furosemide [Lasix] 40 mg PO DAILY 01/05/19 Galantamine HBr [Razadyne ER] 8 mg PO DAILY 01/05/19 Glipizide [Glucotrol] 10 mg PO BID 01/05/19 Labetalol HCl [Normodyne -] 400 mg PO BID 01/05/19 Memantine HCl [Namenda -] 5 mg PO DAILY 01/05/19 Methimazole 5 mg PO DAILY 01/05/19 Olmesartan Medoxomil [Benicar (Nf)] 40 mg PO DAILY 01/05/19 Potassium Chloride [K-Dur -] 10 meq PO BID 01/05/19 Pramipexole Di-HCl [Mirapex] 0.25 mg PO DAILY 01/05/19 Warfarin Sodium [Coumadin] 5 mg PO DAILY 01/05/19 Family Medical History Family History: Unremarkable Review of Systems - Review of Systems Constitutional: reports: No Symptoms Eyes: reports: No Symptoms HENT: reports: No Symptoms Neck: reports: No Symptoms Cardiovascular: reports: No Symptoms Respiratory: reports: No Symptoms Gastrointestinal: reports: No Symptoms Genitourinary: reports: No Symptoms Musculoskeletal: reports: No Symptoms Integumentary: reports: No Symptoms Neurological: reports: No Symptoms Endocrine: reports: No Symptoms Hematology/Lymphatic: reports: No Symptoms Psychiatric: reports: No Symptoms Vital Signs: Vital Signs Temperature 97.7 F 11/26/19 07:23 Pulse Rate 93 H 11/26/19 12:49 Respiratory Rate 24 H 11/26/19 12:49 Blood Pressure 191/61 H 11/26/19 12:49 O2 Sat by Pulse Oximetry (%) 97 11/26/19 12:49 Constitutional: Yes: No Distress, Calm Eyes: Yes: Conjunctiva Clear, EOM Intact HENT: Yes: Atraumatic, Normocephalic Neck: Yes: Supple, Trachea Midline Respiratory: Yes: Regular, CTA Bilaterally Gastrointestinal: Yes: Normal Bowel Sounds, Soft Cardiovascular: Yes: Regular Rate and Rhythm Musculoskeletal: No: Back Pain Extremities: No: Cold Edema: Yes Edema: LLE: 1+, RLE: 1+ Integumentary: No: Jaundice Neurological: Yes: Alert, Oriented Psychiatric: No: Agitated - Other Data Labs, Other Data: CBC, BMP 11/26/19 08:30 11/26/19 08:30 INR, PTT INR 1.90 (0.83-1.09) H 11/26/19 08:30 Troponin, BNP 11/26/19 08:30 Troponin I < 0.02 B-Natriuretic Peptide 3829.0 H Troponin, BNP 11/26/19 08:30 Troponin I < 0.02 B-Natriuretic Peptide 3829.0 H Assessment/Plan EKG: afib, inferior and anterolateral STD similar to prior CXR: + congestion tele: afib, rate controlled acute on chronic diastolic HF - start IV lasix 40 mg daily - monitor Cr, lytes, daily weights COPD - manage per primary Afib - cont cardizem, digoxin - cont coumadin, goal INR 2-3 HTN - cont home meds ppm ([employer]) - outpatient monitoring
[2019-11-26] MEDS ORDERED: glipiZIDE 5 MG TABLET (FP) ONE (18:44)
[2019-11-26] MEDS ORDERED: WARFARIN NA 5 MG TABLET (UD) ONE (18:44)
[2019-11-26] MEDS: glipiZIDE 10 MG TABLET (FP) PO SCH (18:45)
[2019-11-26] MEDS: WARFARIN NA 5 MG TABLET (UD) PO SCH (18:45)
[2019-11-26] MEDS ORDERED: ALBUTEROL SO4 2.5/IPRATROPIUM 0.5 INH SOL 3 ML VIAL.NEB. NEB PRN (19:27)
[2019-11-26] MEDS ORDERED: LABETALOL HCL 100 MG TABLET (FP) ONE (21:15)
[2019-11-26] MEDS: POTASSIUM CHLORIDE TABS 10 MEQ TABLET.ER (FP) PO SCH (21:56)
[2019-11-26] MEDS: LABETALOL HCL 200 MG TABLET (FP) PO SCH (21:56)
[2019-11-26] MEDS: INSULIN SLIDING SCALE (NOVOLOG) 1 VIAL SQ SCH (23:44)
[2019-11-27] MEDS ORDERED: glipiZIDE 5 MG TABLET (FP) ONE (06:15)
[2019-11-27] MEDS: glipiZIDE 10 MG TABLET (FP) PO SCH ×2 (06:22→15:32)
[2019-11-27] MEDS: INSULIN SLIDING SCALE (NOVOLOG) 1 VIAL SQ SCH ×4 (06:23→22:27)
[2019-11-27 07:12] LABS: INR 2.12 (0.83-1.09); PROTHROMBIN TIME (PATIENT) 25.2 SEC (9.7-13.0)
[2019-11-27] MEDS ORDERED: DIGOXIN 0.125 MG TABLET (FP) ONE (07:13)
[2019-11-27] MEDS ORDERED: POTASSIUM CHLORIDE TABS 10 MEQ TABLET.ER (FP) ONE (07:13)
[2019-11-27] MEDS ORDERED: LABETALOL HCL 100 MG TABLET (FP) ONE (07:13)
[2019-11-27] MEDS ORDERED: dilTIAZem HCL 30 MG TABLET (FP) ONE (07:14)
[2019-11-27] MEDS ORDERED: FUROSEMIDE 40 MG/4 ML INJECTABLE VIAL ONE (07:14)
[2019-11-27] MEDS ORDERED: VALSARTAN 80 MG TABLET (UD) ONE (07:14)
[2019-11-27] MEDS ORDERED: dilTIAZem HCL 60 MG TABLET (FP) ONE (07:14)
[2019-11-27] MEDS: LABETALOL HCL 200 MG TABLET (FP) PO SCH ×2 (09:23→22:26)
[2019-11-27] MEDS: MEMANTINE HCL 5 MG TABLET (UD) PO SCH (09:23)
[2019-11-27] MEDS: VALSARTAN 160 MG TABLET (UD) PO SCH (09:23)
[2019-11-27] MEDS: FUROSEMIDE 40 MG/4 ML INJECTABLE VIAL IVPUSH SCH (09:23)
[2019-11-27] MEDS: PRAMIPEXOLE DIHYDROCHLORIDE 0.25 MG TABLET PO SCH (09:23)
[2019-11-27] MEDS: METHIMAZOLE 5 MG TABLET (FP) PO SCH (09:23)
[2019-11-27] MEDS: DIGOXIN 0.125 MG TABLET (FP) PO SCH (09:23)
[2019-11-27] MEDS: POTASSIUM CHLORIDE TABS 10 MEQ TABLET.ER (FP) PO SCH ×2 (09:23→22:26)
[2019-11-27] MEDS ORDERED: GALANTAMINE HBR 8 MG PO SCH (10:00)
[2019-11-27] MEDS ORDERED: FUROSEMIDE 40 MG TABLET (FP) PO SCH (10:00)
--- NOTE | 2019-11-27 12:22 | PN ---
Progress Note (short form) - Note Progress Note: PULMONARY CONSULTATION DICTATED 11/27/19 IMP DYSPNEA ACUTE ON CHRONIC DIASTOLIC HF AFIB S/PPM S/P CVA HTN HLD ANEMIA SEVERE LIZBETH ON CPAP 9 IDDM PLAN LASIX O2 DAILY WTS MONITOR LYTES,RENAL FUNCTION ECHO F/U CHEST X-RAYS CPAP 9cm H2O AT NIGHT DR BEE Problem List - Problems (1) Sleep apnea Code(s): G47.30 - SLEEP APNEA, UNSPECIFIED (2) CHF exacerbation Code(s): I50.9 - HEART FAILURE, UNSPECIFIED Qualifiers: Heart failure type: unspecified Qualified Code(s): I50.9 - Heart failure, unspecified (3) Hypertension Code(s): I10 - ESSENTIAL (PRIMARY) HYPERTENSION Qualifiers: Hypertension type: unspecified Qualified Code(s): I10 - Essential (primary ) hypertension (4) Edema Code(s): R60.9 - EDEMA, UNSPECIFIED Qualifiers: Edema type: unspecified Qualified Code(s): R60.9 - Edema, unspecified (5) Atrial fibrillation Code(s): I48.91 - UNSPECIFIED ATRIAL FIBRILLATION (6) Hyperlipemia Code(s): E78.5 - HYPERLIPIDEMIA, UNSPECIFIED (7) H/O: CVA (cerebrovascular accident) Code(s): Z86.73 - PRSNL HX OF TIA (TIA), AND CEREB INFRC W/O RESID DEFICITS (8) Dyspnea Code(s): R06.00 - DYSPNEA, UNSPECIFIED
--- NOTE | 2019-11-27 12:41 | PN ---
Progress Note (short form) - Note Progress Note: s: sob, edema improving. no chest pain, palps, dizziness Current Medications Albuterol/Ipratropium (Duoneb -) 1 amp NEB Q4H PRN PRN Reason: SHORTNESS OF BREATH Digoxin (Lanoxin -) 0.125 mg PO DAILY [facility] Last Admin: 11/27/19 09:23 Dose: 0.125 mg Diltiazem HCl (Cardizem Cd -) 360 mg PO DAILY [facility] Last Admin: 11/27/19 09:23 Dose: 360 mg Furosemide (Lasix Injection -) 40 mg IVPUSH DAILY [facility] Last Admin: 11/27/19 09:23 Dose: 40 mg Glipizide (Glucotrol -) 10 mg PO BIDI [facility] Last Admin: 11/27/19 06:22 Dose: 10 mg Insulin Aspart (Novolog Vial Sliding Scale -) 1 vial SQ ACHS [facility]; Protocol Last Admin: 11/27/19 10:53 Dose: 4 units Labetalol HCl (Normodyne -) 400 mg PO BID [facility] Last Admin: 11/27/19 09:23 Dose: 400 mg Memantine (Namenda -) 5 mg PO DAILY [facility] Last Admin: 11/27/19 09:23 Dose: 5 mg Methimazole (Tapazole -) 5 mg PO DAILY [facility] Last Admin: 11/27/19 09:23 Dose: 5 mg Non-Formulary Medication (Galantamine Hbr [Razadyne Er]) 8 mg PO DAILY [facility] Potassium Chloride (K-Dur -) 10 meq PO BID [facility] Last Admin: 11/27/19 09:23 Dose: 10 meq Pramipexole Dihydrochloride (Mirapex -) 0.25 mg PO DAILY [facility] Last Admin: 11/27/19 09:23 Dose: 0.25 mg Valsartan (Diovan -) 320 mg PO DAILY [facility] Last Admin: 11/27/19 09:23 Dose: 320 mg Warfarin Sodium (Coumadin -) 5 mg PO DAILY@1800 [facility] Last Admin: 11/26/19 18:45 Dose: 5 mg Vital Signs Period Temp Pulse Resp BP Sys/Batista Pulse Ox Last 24 Hr 98.3 F-98.5 F 66-93 19-24 105-230/49-174 96-100 Constitutional: Yes: No Distress, Calm Eyes: Yes: Conjunctiva Clear, EOM Intact HENT: Yes: Atraumatic, Normocephalic Neck: Yes: Supple, Trachea Midline Respiratory: Yes: Regular, CTA Bilaterally Gastrointestinal: Yes: Normal Bowel Sounds, Soft Cardiovascular: Yes: Regular Rate and Rhythm Musculoskeletal: No: Back Pain Extremities: No: Cold Edema: Yes Edema: LLE: 1+, RLE: 1+ Integumentary: No: Jaundice Neurological: Yes: Alert, Oriented Psychiatric: No: Agitated Assessment/Plan EKG: afib, inferior and anterolateral STD similar to prior CXR: + congestion 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
--- NOTE | 2019-11-27 16:43 | PN ---
Progress Note, Physician - Current Medication List Current Medications: Active Medications Albuterol/Ipratropium (Duoneb -) 1 amp NEB Q4H PRN PRN Reason: SHORTNESS OF BREATH Digoxin (Lanoxin -) 0.125 mg PO DAILY [facility] Last Admin: 11/27/19 09:23 Dose: 0.125 mg Diltiazem HCl (Cardizem Cd -) 360 mg PO DAILY [facility] Last Admin: 11/27/19 09:23 Dose: 360 mg Furosemide (Lasix Injection -) 40 mg IVPUSH DAILY [facility] Last Admin: 11/27/19 09:23 Dose: 40 mg Glipizide (Glucotrol -) 10 mg PO BIDI [facility] Last Admin: 11/27/19 15:32 Dose: 10 mg Insulin Aspart (Novolog Vial Sliding Scale -) 1 vial SQ ACHS [facility]; Protocol Last Admin: 11/27/19 15:44 Dose: 8 units Labetalol HCl (Normodyne -) 400 mg PO BID [facility] Last Admin: 11/27/19 09:23 Dose: 400 mg Memantine (Namenda -) 5 mg PO DAILY [facility] Last Admin: 11/27/19 09:23 Dose: 5 mg Methimazole (Tapazole -) 5 mg PO DAILY [facility] Last Admin: 11/27/19 09:23 Dose: 5 mg Non-Formulary Medication (Galantamine Hbr [Razadyne Er]) 8 mg PO DAILY [facility] Potassium Chloride (K-Dur -) 10 meq PO BID [facility] Last Admin: 11/27/19 09:23 Dose: 10 meq Pramipexole Dihydrochloride (Mirapex -) 0.25 mg PO DAILY [facility] Last Admin: 11/27/19 09:23 Dose: 0.25 mg Valsartan (Diovan -) 320 mg PO DAILY [facility] Last Admin: 11/27/19 09:23 Dose: 320 mg Warfarin Sodium (Coumadin -) 5 mg PO DAILY@1800 [facility] Last Admin: 11/26/19 18:45 Dose: 5 mg - Objective Vital Signs: Vital Signs Temperature 98.3 F 11/27/19 10:57 Pulse Rate 71 11/27/19 10:57 Respiratory Rate 19 11/27/19 10:57 Blood Pressure 105/49 L 11/27/19 10:57 O2 Sat by Pulse Oximetry (%) 98 11/27/19 10:57 Constitutional: Yes: No Distress HENT: Yes: Atraumatic Neck: Yes: Supple Cardiovascular: Yes: Regular Rate and Rhythm Respiratory: Yes: CTA Bilaterally Gastrointestinal: Yes: Normal Bowel Sounds Extremities: Yes: WNL Edema: No Peripheral Pulses WNL: Yes Neurological: Yes: Alert Labs: CBC, BMP 11/26/19 08:30 11/26/19 08:30 INR, PTT INR 2.12 (0.83-1.09) H 11/27/19 06:25 Problem List - Problems (1) CHF exacerbation Assessment/Plan: iv lasix continue other meds cardio on board Code(s): I50.9 - HEART FAILURE, UNSPECIFIED Qualifiers: Heart failure type: unspecified Qualified Code(s): I50.9 - Heart failure, unspecified (2) Subtherapeutic anticoagulation Assessment/Plan: on coumadin fu inr Code(s): Z51.81 - ENCOUNTER FOR THERAPEUTIC DRUG LEVEL MONITORING; Z79.01 - DETENTION (CURRENT) USE OF ANTICOAGULANTS (3) Hypertension Assessment/Plan: on meds monitor Code(s): I10 - ESSENTIAL (PRIMARY) HYPERTENSION Qualifiers: Hypertension type: unspecified Qualified Code(s): I10 - Essential (primary ) hypertension (4) Atrial fibrillation Code(s): I48.91 - UNSPECIFIED ATRIAL FIBRILLATION (5) Hyperlipemia Code(s): E78.5 - HYPERLIPIDEMIA, UNSPECIFIED (6) Insulin dependent diabetes mellitus Code(s): E11.9 - TYPE 2 DIABETES MELLITUS WITHOUT COMPLICATIONS; Z79.4 - DETENTION (CURRENT) USE OF INSULIN
[2019-11-27] MEDS: WARFARIN NA 5 MG TABLET (UD) PO SCH (17:05)
[2019-11-27 18:44] VITALS: BMI 23.6
[2019-11-28] MEDS ORDERED: glipiZIDE 5 MG TABLET (FP) ONE ×2 (05:05→16:40)
[2019-11-28] MEDS: INSULIN SLIDING SCALE (NOVOLOG) 1 VIAL SQ SCH ×4 (06:03→22:40)
[2019-11-28] MEDS: glipiZIDE 10 MG TABLET (FP) PO SCH ×2 (06:04→16:58)
[2019-11-28] MEDS: LABETALOL HCL 200 MG TABLET (FP) PO SCH ×3 (06:16→22:32)
[2019-11-28 07:50] LABS: BASO % 1.2 % (0-2.0); EOS % 1.1 % (0-4.5); HEMATOCRIT 31.5 % (32.4-45.2); HEMOGLOBIN 10.3 GM/dL (10.7-15.3); LYMPH % 14.6 % (8-40); MCH 24.7 pg (25.7-33.7); MCHC 32.7 g/dl (32.0-36.0); MEAN CELL VOLUME 75.8 fl (80-96); MEAN PLT VOLUME 9.3 fl (7.5-11.1); MONO % 12.5 % (3.8-10.2); NEUT % 70.6 % (42.8-82.8); PLATELET COUNT 202 K/MM3 (134-434); RBC 4.15 M/mm3 (3.60-5.2); RDW 14.4 % (11.6-15.6); WHITE BLOOD COUNT 6.8 K/mm3 (4.0-10.0)
[2019-11-28 08:01] LABS: INR 2.56 (0.83-1.09); PROTHROMBIN TIME (PATIENT) 30.5 SEC (9.7-13.0)
[2019-11-28 08:18] LABS: ALBUMIN 3.1 g/dl (3.4-5.0); BILIRUBIN,TOTAL 0.5 mg/dL (0.2-1); CALCIUM 8.6 mg/dL (8.5-10.1); POTASSIUM 3.2 mmol/L (3.5-5.1)
[2019-11-28] MEDS ORDERED: PT OWN MED DRAWER 7, Y5N ONE (11:11)
--- NOTE | 2019-11-28 11:39 | PN ---
Progress Note (short form) - Note Progress Note: s: sob stable, edema better. no chest pain, palps, dizziness Current Medications Albuterol/Ipratropium (Duoneb -) 1 amp NEB Q4H PRN PRN Reason: SHORTNESS OF BREATH Digoxin (Lanoxin -) 0.125 mg PO DAILY [facility] Last Admin: 11/27/19 09:23 Dose: 0.125 mg Diltiazem HCl (Cardizem Cd -) 360 mg PO DAILY [facility] Last Admin: 11/27/19 09:23 Dose: 360 mg Furosemide (Lasix Injection -) 40 mg IVPUSH DAILY [facility] Last Admin: 11/27/19 09:23 Dose: 40 mg Glipizide (Glucotrol -) 10 mg PO BIDI [facility] Last Admin: 11/28/19 06:04 Dose: 10 mg Insulin Aspart (Novolog Vial Sliding Scale -) 1 vial SQ ACHS [facility]; Protocol Last Admin: 11/28/19 06:03 Dose: Not Given Labetalol HCl (Normodyne -) 400 mg PO BID [facility] Last Admin: 11/28/19 06:16 Dose: 400 mg Memantine (Namenda -) 5 mg PO DAILY [facility] Last Admin: 11/27/19 09:23 Dose: 5 mg Methimazole (Tapazole -) 5 mg PO DAILY [facility] Last Admin: 11/27/19 09:23 Dose: 5 mg Non-Formulary Medication (Galantamine Hbr [Razadyne Er]) 8 mg PO DAILY [facility] Potassium Chloride (K-Dur -) 10 meq PO BID [facility] Last Admin: 11/27/19 22:26 Dose: 10 meq Pramipexole Dihydrochloride (Mirapex -) 0.25 mg PO DAILY [facility] Last Admin: 11/27/19 09:23 Dose: 0.25 mg Valsartan (Diovan -) 320 mg PO DAILY [facility] Last Admin: 11/27/19 09:23 Dose: 320 mg Warfarin Sodium (Coumadin -) 5 mg PO DAILY@1800 [facility] Last Admin: 11/27/19 17:05 Dose: 5 mg Vital Signs Period Temp Pulse Resp BP Sys/Batista Pulse Ox Last 24 Hr 97.4 F-98.6 F 67-73 18-20 148-193/8-69 98-100 Constitutional: Yes: No Distress, Calm Eyes: Yes: Conjunctiva Clear, EOM Intact HENT: Yes: Atraumatic, Normocephalic Neck: Yes: Supple, Trachea Midline Respiratory: Yes: Regular, CTA Bilaterally Gastrointestinal: Yes: Normal Bowel Sounds, Soft Cardiovascular: Yes: Regular Rate and Rhythm Musculoskeletal: No: Back Pain Extremities: No: Cold Edema: Yes Edema: LLE: 1+, RLE: 1+ Integumentary: No: Jaundice Neurological: Yes: Alert, Oriented Psychiatric: No: Agitated Assessment/Plan EKG: afib, inferior and anterolateral STD similar to prior CXR: + congestion 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 inc lasix to 60 mg IV daily - monitor Cr, lytes, daily weights - echo pending COPD - manage per primary Afib - cont cardizem, digoxin - cont coumadin, goal INR 2-3 HTN - high BPs here, did not receive home meds until today - monitor, cont current meds ppm (Medtr[employer]) - outpatient monitoring
[2019-11-28] MEDS: DIGOXIN 0.125 MG TABLET (FP) PO SCH (11:44)
[2019-11-28] MEDS: PRAMIPEXOLE DIHYDROCHLORIDE 0.25 MG TABLET PO SCH (11:44)
[2019-11-28] MEDS: VALSARTAN 160 MG TABLET (UD) PO SCH (11:44)
[2019-11-28] MEDS: POTASSIUM CHLORIDE TABS 10 MEQ TABLET.ER (FP) PO SCH ×2 (11:45→22:32)
[2019-11-28] MEDS: METHIMAZOLE 5 MG TABLET (FP) PO SCH (11:46)
[2019-11-28] MEDS: MEMANTINE HCL 5 MG TABLET (UD) PO SCH (11:46)
--- NOTE | 2019-11-28 12:02 | PN ---
Progress Note, Physician History of Present Illness: pulmonary alert,feeling better,less dyspneic - Current Medication List Current Medications: Active Medications Albuterol/Ipratropium (Duoneb -) 1 amp NEB Q4H PRN PRN Reason: SHORTNESS OF BREATH Digoxin (Lanoxin -) 0.125 mg PO DAILY [facility] Last Admin: 11/28/19 11:44 Dose: 0.125 mg Diltiazem HCl (Cardizem Cd -) 360 mg PO DAILY [facility] Last Admin: 11/28/19 11:46 Dose: 360 mg Furosemide (Lasix Injection -) 60 mg IVPUSH DAILY [facility] Glipizide (Glucotrol -) 10 mg PO BIDI [facility] Last Admin: 11/28/19 06:04 Dose: 10 mg Insulin Aspart (Novolog Vial Sliding Scale -) 1 vial SQ ACHS [facility]; Protocol Last Admin: 11/28/19 06:03 Dose: Not Given Labetalol HCl (Normodyne -) 400 mg PO BID [facility] Last Admin: 11/28/19 11:47 Dose: Not Given Memantine (Namenda -) 5 mg PO DAILY [facility] Last Admin: 11/28/19 11:46 Dose: 5 mg Methimazole (Tapazole -) 5 mg PO DAILY [facility] Last Admin: 11/28/19 11:46 Dose: 5 mg Non-Formulary Medication (Galantamine Hbr [Razadyne Er]) 8 mg PO DAILY [facility] Potassium Chloride (K-Dur -) 10 meq PO BID [facility] Last Admin: 11/28/19 11:45 Dose: 10 meq Pramipexole Dihydrochloride (Mirapex -) 0.25 mg PO DAILY [facility] Last Admin: 11/28/19 11:44 Dose: 0.25 mg Valsartan (Diovan -) 320 mg PO DAILY [facility] Last Admin: 11/28/19 11:44 Dose: 320 mg Warfarin Sodium (Coumadin -) 5 mg PO DAILY@1800 [facility] Last Admin: 11/27/19 17:05 Dose: 5 mg - Objective Vital Signs: Vital Signs Temperature 98.2 F 11/28/19 10:00 Pulse Rate 71 11/28/19 11:44 Respiratory Rate 20 11/28/19 10:00 Blood Pressure 148/55 L 11/28/19 10:00 O2 Sat by Pulse Oximetry (%) 98 11/27/19 20:00 Constitutional: Yes: Well Nourished, Calm Eyes: Yes: WNL HENT: Yes: WNL Neck: Yes: WNL Cardiovascular: Yes: Regular Rate and Rhythm, S1, S2 Respiratory: Yes: Rales (bilateral rales) Gastrointestinal: Yes: Normal Bowel Sounds, Soft Extremities: Yes: WNL Edema: No Labs: CBC, BMP 11/28/19 05:20 11/28/19 05:20 INR, PTT INR 2.56 (0.83-1.09) H 11/28/19 05:20 Problem List - Problems (1) Sleep apnea Code(s): G47.30 - SLEEP APNEA, UNSPECIFIED (2) CHF exacerbation Code(s): I50.9 - HEART FAILURE, UNSPECIFIED Qualifiers: Heart failure type: unspecified Qualified Code(s): I50.9 - Heart failure, unspecified (3) Hypertension Code(s): I10 - ESSENTIAL (PRIMARY) HYPERTENSION Qualifiers: Hypertension type: unspecified Qualified Code(s): I10 - Essential (primary ) hypertension (4) Edema Code(s): R60.9 - EDEMA, UNSPECIFIED Qualifiers: Edema type: unspecified Qualified Code(s): R60.9 - Edema, unspecified (5) Atrial fibrillation Code(s): I48.91 - UNSPECIFIED ATRIAL FIBRILLATION (6) Hyperlipemia Code(s): E78.5 - HYPERLIPIDEMIA, UNSPECIFIED (7) H/O: CVA (cerebrovascular accident) Code(s): Z86.73 - PRSNL HX OF TIA (TIA), AND CEREB INFRC W/O RESID DEFICITS (8) Dyspnea Code(s): R06.00 - DYSPNEA, UNSPECIFIED Assessment/Plan IMP DYSPNEA IMPROVING ACUTE ON CHRONIC DIASTOLIC HF AFIB S/PPM S/P CVA HTN HLD ANEMIA SEVERE LIZBETH ON CPAP 9 IDDM PLAN CONTINUE LASIX O2 DAILY WTS MONITOR LYTES,RENAL FUNCTION ECHO F/U CHEST X-RAYS CPAP 9cm H2O AT NIGHT 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 Problem List - Problems (1) Sleep apnea Code(s): G47.30 - SLEEP APNEA, UNSPECIFIED (2) CHF exacerbation Code(s): I50.9 - HEART FAILURE, UNSPECIFIED Qualifiers: Heart failure type: unspecified Qualified Code(s): I50.9 - Heart failure, unspecified (3) Hypertension Code(s): I10 - ESSENTIAL (PRIMARY) HYPERTENSION Qualifiers: Hypertension type: unspecified Qualified Code(s): I10 - Essential (primary ) hypertension (4) Edema Code(s): R60.9 - EDEMA, UNSPECIFIED Qualifiers: Edema type: unspecified Qualified Code(s): R60.9 - Edema, unspecified (5) Atrial fibrillation Code(s): I48.91 - UNSPECIFIED ATRIAL FIBRILLATION (6) Hyperlipemia Code(s): E78.5 - HYPERLIPIDEMIA, UNSPECIFIED (7) H/O: CVA (cerebrovascular accident) Code(s): Z86.73 - PRSNL HX OF TIA (TIA), AND CEREB INFRC W/O RESID DEFICITS (8) Dyspnea Code(s): R06.00 - DYSPNEA, UNSPECIFIED
[2019-11-28] MEDS: FUROSEMIDE 40 MG/4 ML INJECTABLE VIAL IVPUSH SCH (12:05)
--- NOTE | 2019-11-28 14:35 | ECHO ---
Version: 1 Name: BERYL ODELL Exam: Adult Echocardiogram Study Date: 11/28/2019, 10:18 AM Age: 84 Years MMode/2D Measurements & Calculations IVSd: 1.28 cm LVIDs: 2.7 cm LVIDd: 3.3 cm LVPWd: 1.44 cm ACS: 1.34 cm LA dimension: 4.3 cm LVOT diam: 1.77 cm Doppler Measurements & Calculations MV E max jackson: 114.0 cm/sec Med E/e': 20.0 Lat E/e': 11.1 Med Peak E' Jackson: 5.7 cm/sec Lat Peak E' Jackson: 10.3 cm/sec MR max P.0 mmHg Ao max P.0 mmHg AMINATA(I,D): 1.28 cm Ao mean P.1 mmHg LV V1 mean: 81.2 cm/sec Ao V2 max: 228.6 cm/sec LV V1 mean P.0 mmHg TR max jackson: 298.5 cm/sec TR max P.9 mmHg Procedure A complete two-dimensional transthoracic echocardiogram was performed (2D, M-mode, Doppler and color flow Doppler). The patient was in atrial fibrillation with controlled ventricular rate during the exam. Left Ventricle There is moderate concentric left ventricular hypertrophy. Ejection Fraction = 55%. The left ventric ular ejection fraction is normal. Right Ventricle There is a pacemaker lead in the right ventricle. There is severe right ventricular hypertrophy. The right ventricular systolic function is normal. Atria The left atrium is mildly dilated. The right atrium is mildly dilated. Mitral Valve There is moderate mitral annular calcification. There is no mitral valve stenosis. There is no duc l regurgitation noted. Tricuspid Valve The tricuspid valve is normal in structure and function. There is mild tricuspid regurgitation. Righ t ventricular systolic pressure is elevated at 46 mmhg. There is mild pulmonary hypertension. Aortic Valve There is moderate aortic sclerosis.;. The calculated aortic valve area using the continuity equation is 1.2 cm2. Aortic max pressure gradient= 10mmHg. Mild valvular aortic stenosis. No aortic regurgitation is present. Pulmonic Valve The pulmonic valve is normal in structure and function. Great Vessels The aortic root is not well visualized. Pericardium/Pleura Small pericardial effusion (<1cm). There are no echocardiographic indications of cardiac tamponade. 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 The patient was in atrial fibrillation with controlled ventricular rate during the exam. There is moderate concentric left ventricular hypertrophy. The left ventricular ejection fraction is normal. There is severe right ventricular hypertrophy. The right ventricular systolic function is normal. There is mild pulmonary hypertension. Mild valvular aortic stenosis. David Hendricks 11/28/2019, 2:34 PM Ordering Physician: PAUL JORDAN Performed By: Keshia Cowan
--- NOTE | 2019-11-28 16:00 | PN ---
Progress Note, Physician - Current Medication List Current Medications: Active Medications Albuterol/Ipratropium (Duoneb -) 1 amp NEB Q4H PRN PRN Reason: SHORTNESS OF BREATH Digoxin (Lanoxin -) 0.125 mg PO DAILY [facility] Last Admin: 11/28/19 11:44 Dose: 0.125 mg Diltiazem HCl (Cardizem Cd -) 360 mg PO DAILY [facility] Last Admin: 11/28/19 11:46 Dose: 360 mg Furosemide (Lasix Injection -) 60 mg IVPUSH DAILY [facility] Glipizide (Glucotrol -) 10 mg PO BIDI [facility] Last Admin: 11/28/19 06:04 Dose: 10 mg Insulin Aspart (Novolog Vial Sliding Scale -) 1 vial SQ ACHS [facility]; Protocol Last Admin: 11/28/19 12:04 Dose: 8 units Labetalol HCl (Normodyne -) 400 mg PO BID [facility] Last Admin: 11/28/19 11:47 Dose: Not Given Memantine (Namenda -) 5 mg PO DAILY [facility] Last Admin: 11/28/19 11:46 Dose: 5 mg Methimazole (Tapazole -) 5 mg PO DAILY [facility] Last Admin: 11/28/19 11:46 Dose: 5 mg Non-Formulary Medication (Galantamine Hbr [Razadyne Er]) 8 mg PO DAILY [facility] Potassium Chloride (K-Dur -) 10 meq PO BID [facility] Last Admin: 11/28/19 11:45 Dose: 10 meq Pramipexole Dihydrochloride (Mirapex -) 0.25 mg PO DAILY [facility] Last Admin: 11/28/19 11:44 Dose: 0.25 mg Valsartan (Diovan -) 320 mg PO DAILY [facility] Last Admin: 11/28/19 11:44 Dose: 320 mg Warfarin Sodium (Coumadin -) 5 mg PO DAILY@1800 [facility] Last Admin: 11/27/19 17:05 Dose: 5 mg - Objective Vital Signs: Vital Signs Temperature 98.2 F 11/28/19 10:00 Pulse Rate 71 11/28/19 11:44 Respiratory Rate 20 11/28/19 10:00 Blood Pressure 148/55 L 11/28/19 10:00 O2 Sat by Pulse Oximetry (%) 98 11/28/19 09:00 Constitutional: Yes: No Distress HENT: Yes: Atraumatic Neck: Yes: Supple Cardiovascular: Yes: Regular Rate and Rhythm Respiratory: Yes: CTA Bilaterally Gastrointestinal: Yes: Normal Bowel Sounds Extremities: Yes: WNL Edema: Yes Edema: LLE: Trace, RLE: Trace Neurological: Yes: Alert, Oriented Labs: CBC, BMP 11/28/19 05:20 11/28/19 05:20 INR, PTT INR 2.56 (0.83-1.09) H 11/28/19 05:20 Problem List - Problems (1) CHF exacerbation Assessment/Plan: iv lasix continue other meds cardio on board Code(s): I50.9 - HEART FAILURE, UNSPECIFIED Qualifiers: Heart failure type: unspecified Qualified Code(s): I50.9 - Heart failure, unspecified (2) Subtherapeutic anticoagulation Assessment/Plan: on coumadin fu inr Code(s): Z51.81 - ENCOUNTER FOR THERAPEUTIC DRUG LEVEL MONITORING; Z79.01 - PRISON (CURRENT) USE OF ANTICOAGULANTS (3) Hypertension Assessment/Plan: on meds monitor Code(s): I10 - ESSENTIAL (PRIMARY) HYPERTENSION Qualifiers: Hypertension type: unspecified Qualified Code(s): I10 - Essential (primary ) hypertension (4) Atrial fibrillation Assessment/Plan: on coumadin Code(s): I48.91 - UNSPECIFIED ATRIAL FIBRILLATION (5) Hyperlipemia Code(s): E78.5 - HYPERLIPIDEMIA, UNSPECIFIED (6) Insulin dependent diabetes mellitus Code(s): E11.9 - TYPE 2 DIABETES MELLITUS WITHOUT COMPLICATIONS; 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
[2019-11-28] MEDS: WARFARIN NA 5 MG TABLET (UD) PO SCH (17:09)
[2019-11-29] MEDS: INSULIN SLIDING SCALE (NOVOLOG) 1 VIAL SQ SCH ×4 (06:40→23:14)
[2019-11-29] MEDS: glipiZIDE 10 MG TABLET (FP) PO SCH (06:41)
[2019-11-29 07:32] LABS: INR 3.01 (0.83-1.09); PROTHROMBIN TIME (PATIENT) 35.9 SEC (9.7-13.0)
[2019-11-29] MEDS ORDERED: PT OWN MED DRAWER 7, Y5N ONE (09:20)
[2019-11-29] MEDS: LABETALOL HCL 200 MG TABLET (FP) PO SCH ×2 (09:38→22:58)
[2019-11-29] MEDS: VALSARTAN 160 MG TABLET (UD) PO SCH (09:39)
[2019-11-29] MEDS: PRAMIPEXOLE DIHYDROCHLORIDE 0.25 MG TABLET PO SCH (09:39)
[2019-11-29] MEDS: POTASSIUM CHLORIDE TABS 10 MEQ TABLET.ER (FP) PO SCH ×2 (09:40→22:59)
[2019-11-29] MEDS: DIGOXIN 0.125 MG TABLET (FP) PO SCH (09:40)
[2019-11-29] MEDS: METHIMAZOLE 5 MG TABLET (FP) PO SCH (09:40)
[2019-11-29] MEDS: MEMANTINE HCL 5 MG TABLET (UD) PO SCH (09:40)
[2019-11-29] MEDS: FUROSEMIDE 40 MG/4 ML INJECTABLE VIAL IVPUSH SCH (09:42)
--- NOTE | 2019-11-29 10:46 | PN ---
Progress Note (short form) - Note Progress Note: s: sob a little better, edema better. no chest pain, palps, dizziness Current Medications Generic Name Dose Route Start Last Admin Trade Name Karen PRN Reason Stop Dose Admin Albuterol/Ipratropium 1 amp 11/26/19 19:27 Duoneb - NEB Q4H PRN SHORTNESS OF BREATH Digoxin 0.125 mg 11/27/19 10:00 11/29/19 09:40 Lanoxin - PO 0.125 mg DAILY [facility] Administration Diltiazem HCl 360 mg 11/27/19 10:00 11/29/19 09:40 Cardizem Cd - PO 360 mg DAILY [facility] Administration Furosemide 60 mg 11/28/19 11:37 11/29/19 09:42 Lasix Injection - IVPUSH 60 mg DAILY [facility] Administration Glipizide 10 mg 11/26/19 16:30 11/29/19 06:41 Glucotrol - PO 10 mg BIDI [facility] Administration Insulin Aspart 1 vial 11/26/19 22:00 11/29/19 06:40 Novolog Vial Sliding Scale - SQ Not Given ACHS [facility] Protocol Labetalol HCl 400 mg 11/26/19 22:00 11/29/19 09:38 Normodyne - PO 400 mg BID [facility] Administration Memantine 5 mg 11/27/19 10:00 11/29/19 09:40 Namenda - PO 5 mg DAILY [facility] Administration Methimazole 5 mg 11/27/19 10:00 11/29/19 09:40 Tapazole - PO 5 mg DAILY [facility] Administration Non-Formulary Medication 8 mg 11/27/19 10:00 Galantamine Hbr [Razadyne Er] PO DAILY [facility] Potassium Chloride 10 meq 11/26/19 22:00 11/29/19 09:40 K-Dur - PO 10 meq BID [facility] Administration Pramipexole Dihydrochloride 0.25 mg 11/27/19 10:00 11/29/19 09:39 Mirapex - PO 0.25 mg DAILY [facility] Administration Valsartan 320 mg 11/27/19 10:00 11/29/19 09:39 Diovan - PO 320 mg DAILY [facility] Administration Warfarin Sodium 5 mg 11/26/19 18:00 11/28/19 17:09 Coumadin - PO 5 mg DAILY@1800 [facility] Administration Vital Signs Period Temp Pulse Resp BP Sys/Batista Pulse Ox Last 24 Hr 97.9 F-97.9 F 60-83 18-20 151-180/56-78 100 Constitutional: Yes: No Distress, Calm Eyes: Yes: Conjunctiva Clear Neck: Yes: Supple, Trachea Midline Respiratory: Yes: Regular, CTA Bilaterally Gastrointestinal: Yes: Normal Bowel Sounds, Soft Cardiovascular: Yes: Regular Rate and Rhythm Musculoskeletal: No: Back Pain Extremities: No: Cold Edema: Yes Edema: LLE: 1+, RLE: 1+ Integumentary: No: Jaundice Neurological: Yes: Alert, Oriented Psychiatric: No: Agitated CBC, BMP 11/28/19 05:20 Assessment/Plan EKG: afib, inferior and anterolateral STD similar to prior CXR: + congestion tele: afib, rate controlled, 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 may need further eval as outpt for amyloid. COPD - manage per primary Afib - cont cardizem, digoxin - cont coumadin, goal INR 2-3 HTN - monitor, cont current meds ppm (Medtr[employer]) - outpatient monitoring
[2019-11-29 10:52] LABS: BLOOD UREA NITROGEN 30.8 mg/dL (7-18); CALCIUM 8.6 mg/dL (8.5-10.1); CREATININE 1.2 mg/dL (0.55-1.3); POTASSIUM 3.7 mmol/L (3.5-5.1)
[2019-11-29] MEDS ORDERED: INSULIN (LEVEMIR) 100 UNITS/ML UNITS SQ ONE (11:30)
[2019-11-29] MEDS ORDERED: INSULIN (NOVOLOG) ASPART 100 UNITS/ML 10ML VIAL ONE (11:31)
--- NOTE | 2019-11-29 13:04 | PN ---
Progress Note (short form) - Note Progress Note: PULMONARY States breathing is better but not at baseline. Denies cough or chest pain. Vital Signs Period Temp Pulse Resp BP Sys/Batista Pulse Ox Last 24 Hr 97.6 F-98.1 F 60-83 18-22 148-180/56-78 97-100 Gen: NAD at rest Heart: RRR Lung: decreased breath sounds at the bases Abd: soft, nontender Ext: + edema CBC, BMP 11/28/19 05:20 11/29/19 09:54 Active Medications Albuterol/Ipratropium (Duoneb -) 1 amp NEB Q4H PRN PRN Reason: SHORTNESS OF BREATH Digoxin (Lanoxin -) 0.125 mg PO DAILY [facility] Last Admin: 11/29/19 09:40 Dose: 0.125 mg Diltiazem HCl (Cardizem Cd -) 360 mg PO DAILY [facility] Last Admin: 11/29/19 09:40 Dose: 360 mg Furosemide (Lasix Injection -) 60 mg IVPUSH DAILY [facility] Last Admin: 11/29/19 09:42 Dose: 60 mg Glipizide (Glucotrol -) 10 mg PO BIDI [facility] Last Admin: 11/29/19 06:41 Dose: 10 mg Insulin Aspart (Novolog Vial Sliding Scale -) 1 vial SQ ACHS [facility]; Protocol Last Admin: 11/29/19 11:36 Dose: 4 units Labetalol HCl (Normodyne -) 400 mg PO BID [facility] Last Admin: 11/29/19 09:38 Dose: 400 mg Memantine (Namenda -) 5 mg PO DAILY [facility] Last Admin: 11/29/19 09:40 Dose: 5 mg Methimazole (Tapazole -) 5 mg PO DAILY [facility] Last Admin: 11/29/19 09:40 Dose: 5 mg Non-Formulary Medication (Galantamine Hbr [Razadyne Er]) 8 mg PO DAILY [facility] Potassium Chloride (K-Dur -) 10 meq PO BID [facility] Last Admin: 11/29/19 09:40 Dose: 10 meq Pramipexole Dihydrochloride (Mirapex -) 0.25 mg PO DAILY [facility] Last Admin: 11/29/19 09:39 Dose: 0.25 mg Valsartan (Diovan -) 320 mg PO DAILY [facility] Last Admin: 11/29/19 09:39 Dose: 320 mg Warfarin Sodium (Coumadin -) 5 mg PO DAILY@1800 [facility] Last Admin: 11/28/19 17:09 Dose: 5 mg A/P Acute on Chronic Diastolic Heart Failure Atrial Fibrilation s/p PPM COPD HTN DM LIZBETH h/o CVA Hyperthyrodism Anemia - continue lasix - monitor urine output, creatinine - daily weights - inhaled bronchodilators as needed - O2 to keep SpO2>90% - CPAP at night - rate controlled - continue anticoagulation
[2019-11-29] MEDS: GABAPENTIN 300 MG CAPSULE PO SCH ×2 (13:48→22:59)
--- NOTE | 2019-11-29 19:53 | PN ---
Progress Note, Physician - Current Medication List Current Medications: Active Medications Acetaminophen (Tylenol -) 500 mg PO Q6H PRN PRN Reason: PAIN LEVEL 6-10 Albuterol/Ipratropium (Duoneb -) 1 amp NEB Q4H PRN PRN Reason: SHORTNESS OF BREATH Digoxin (Lanoxin -) 0.125 mg PO DAILY [facility] Last Admin: 11/29/19 09:40 Dose: 0.125 mg Diltiazem HCl (Cardizem Cd -) 360 mg PO DAILY [facility] Last Admin: 11/29/19 09:40 Dose: 360 mg Furosemide (Lasix Injection -) 60 mg IVPUSH DAILY [facility] Last Admin: 11/29/19 09:42 Dose: 60 mg Gabapentin (Neurontin -) 300 mg PO TID [facility] Last Admin: 11/29/19 13:48 Dose: 300 mg Insulin Aspart (Novolog Vial Sliding Scale -) 1 vial SQ ACHS [facility]; Protocol Last Admin: 11/29/19 16:25 Dose: Not Given Labetalol HCl (Normodyne -) 400 mg PO BID [facility] Last Admin: 11/29/19 09:38 Dose: 400 mg Memantine (Namenda -) 5 mg PO DAILY [facility] Last Admin: 11/29/19 09:40 Dose: 5 mg Methimazole (Tapazole -) 5 mg PO DAILY [facility] Last Admin: 11/29/19 09:40 Dose: 5 mg Non-Formulary Medication (Galantamine Hbr [Razadyne Er]) 8 mg PO DAILY [facility] Potassium Chloride (K-Dur -) 10 meq PO BID [facility] Last Admin: 11/29/19 09:40 Dose: 10 meq Pramipexole Dihydrochloride (Mirapex -) 0.25 mg PO DAILY [facility] Last Admin: 11/29/19 09:39 Dose: 0.25 mg Valsartan (Diovan -) 320 mg PO DAILY [facility] Last Admin: 11/29/19 09:39 Dose: 320 mg Warfarin Sodium (Coumadin -) 5 mg PO DAILY@1800 [facility] Last Admin: 11/28/19 17:09 Dose: 5 mg - Objective Vital Signs: Vital Signs Temperature 98.5 F 11/29/19 17:00 Pulse Rate 61 11/29/19 17:00 Respiratory Rate 20 11/29/19 17:00 Blood Pressure 152/70 11/29/19 17:00 O2 Sat by Pulse Oximetry (%) 97 11/29/19 12:48 Constitutional: Yes: No Distress HENT: Yes: Atraumatic Neck: Yes: Supple Cardiovascular: Yes: Regular Rate and Rhythm Respiratory: Yes: CTA Bilaterally Gastrointestinal: Yes: Normal Bowel Sounds Extremities: Yes: WNL Edema: No Neurological: Yes: Alert, Oriented Labs: CBC, BMP 11/28/19 05:20 11/29/19 09:54 INR, PTT INR 3.01 (0.83-1.09) H 11/29/19 06:40 Problem List - Problems (1) CHF exacerbation Assessment/Plan: iv lasix continue other meds much improved Code(s): I50.9 - HEART FAILURE, UNSPECIFIED Qualifiers: Heart failure type: unspecified Qualified Code(s): I50.9 - Heart failure, unspecified (2) Subtherapeutic anticoagulation Assessment/Plan: on coumadin fu inr Code(s): Z51.81 - ENCOUNTER FOR THERAPEUTIC DRUG LEVEL MONITORING; Z79.01 - CARE HOME (CURRENT) USE OF ANTICOAGULANTS (3) Hypertension Assessment/Plan: on meds monitor Code(s): I10 - ESSENTIAL (PRIMARY) HYPERTENSION Qualifiers: Hypertension type: unspecified Qualified Code(s): I10 - Essential (primary ) hypertension (4) Atrial fibrillation Assessment/Plan: on coumadin Code(s): I48.91 - UNSPECIFIED ATRIAL FIBRILLATION (5) Hyperlipemia Code(s): E78.5 - HYPERLIPIDEMIA, UNSPECIFIED (6) Insulin dependent diabetes mellitus Code(s): E11.9 - TYPE 2 DIABETES MELLITUS WITHOUT COMPLICATIONS; Z79.4 - CARE HOME (CURRENT) USE OF INSULIN
[2019-11-29] MEDS: ACETAMINOPHEN 500 MG TABLET (FP) PO PRN (22:58)
[2019-11-30] MEDS: INSULIN SLIDING SCALE (NOVOLOG) 1 VIAL SQ SCH ×2 (06:09→11:51)
[2019-11-30] MEDS: ACETAMINOPHEN 500 MG TABLET (FP) PO PRN (06:10)
[2019-11-30] MEDS: GABAPENTIN 300 MG CAPSULE PO SCH ×2 (06:11→13:20)
[2019-11-30 08:27] LABS: CALCIUM 8.7 mg/dL (8.5-10.1); CREATININE 1.1 mg/dL (0.55-1.3); POTASSIUM 3.7 mmol/L (3.5-5.1)
[2019-11-30 08:30] LABS: INR 2.33 (0.83-1.09); PROTHROMBIN TIME (PATIENT) 27.7 SEC (9.7-13.0)
[2019-11-30] MEDS ORDERED: PT OWN MED DRAWER 7, Y5N ONE ×2 (09:29→09:56)
[2019-11-30] MEDS: DIGOXIN 0.125 MG TABLET (FP) PO SCH (09:36)
[2019-11-30] MEDS: LABETALOL HCL 200 MG TABLET (FP) PO SCH (09:37)
[2019-11-30] MEDS: PRAMIPEXOLE DIHYDROCHLORIDE 0.25 MG TABLET PO SCH (09:37)
[2019-11-30] MEDS: FUROSEMIDE 40 MG/4 ML INJECTABLE VIAL IVPUSH SCH (09:37)
[2019-11-30] MEDS: VALSARTAN 160 MG TABLET (UD) PO SCH (09:37)
[2019-11-30] MEDS: POTASSIUM CHLORIDE TABS 10 MEQ TABLET.ER (FP) PO SCH (09:37)
[2019-11-30] MEDS: MEMANTINE HCL 5 MG TABLET (UD) PO SCH (09:37)
[2019-11-30 09:38] VITALS: PULSE 66
[2019-11-30] MEDS: METHIMAZOLE 5 MG TABLET (FP) PO SCH (09:38)
--- NOTE | 2019-11-30 09:52 | PN ---
Progress Note, Physician Chief Complaint: no CP, SOB, palps TELE: AF, controlled, intermittent pacing - Current Medication List Current Medications: Active Medications Acetaminophen (Tylenol -) 500 mg PO Q6H PRN PRN Reason: PAIN LEVEL 6-10 Last Admin: 11/30/19 06:10 Dose: 500 mg Albuterol/Ipratropium (Duoneb -) 1 amp NEB Q4H PRN PRN Reason: SHORTNESS OF BREATH Digoxin (Lanoxin -) 0.125 mg PO DAILY [facility] Last Admin: 11/30/19 09:36 Dose: 0.125 mg Diltiazem HCl (Cardizem Cd -) 360 mg PO DAILY [facility] Last Admin: 11/30/19 09:37 Dose: 360 mg Furosemide (Lasix Injection -) 60 mg IVPUSH DAILY [facility] Last Admin: 11/30/19 09:37 Dose: 60 mg Gabapentin (Neurontin -) 300 mg PO TID [facility] Last Admin: 11/30/19 06:11 Dose: 300 mg Insulin Aspart (Novolog Vial Sliding Scale -) 1 vial SQ [facility]; Protocol Last Admin: 11/30/19 06:09 Dose: Not Given Labetalol HCl (Normodyne -) 400 mg PO BID [facility] Last Admin: 11/30/19 09:37 Dose: 400 mg Memantine (Namenda -) 5 mg PO DAILY [facility] Last Admin: 11/30/19 09:37 Dose: 5 mg Methimazole (Tapazole -) 5 mg PO DAILY [facility] Last Admin: 11/30/19 09:38 Dose: 5 mg Non-Formulary Medication (Galantamine Hbr [Razadyne Er]) 8 mg PO DAILY [facility] Potassium Chloride (K-Dur -) 10 meq PO BID [facility] Last Admin: 11/30/19 09:37 Dose: 10 meq Pramipexole Dihydrochloride (Mirapex -) 0.25 mg PO DAILY [facility] Last Admin: 11/30/19 09:37 Dose: 0.25 mg Valsartan (Diovan -) 320 mg PO DAILY [facility] Last Admin: 11/30/19 09:37 Dose: 320 mg Warfarin Sodium (Coumadin -) 5 mg PO DAILY@1800 [facility] Last Admin: 11/28/19 17:09 Dose: 5 mg - Objective Vital Signs: Vital Signs Temperature 98.4 F 02/28/20 05:00 Pulse Rate 66 11/30/19 09:36 Respiratory Rate 20 11/30/19 05:00 Blood Pressure 157/67 11/30/19 05:00 O2 Sat by Pulse Oximetry (%) 98 11/29/19 21:00 Constitutional: Yes: No Distress Cardiovascular: Yes: Pulse Irregular Respiratory: Yes: CTA Bilaterally Gastrointestinal: Yes: Soft Edema: No Neurological: Yes: Alert Labs: CBC, BMP 11/28/19 05:20 11/30/19 06:59 INR, PTT INR 2.33 (0.83-1.09) H 11/30/19 06:59 - ....Imaging EKG: Image Reviewed Assessment/Plan Assessment/Plan EKG: afib, inferior and anterolateral STD similar to prior CXR: + congestion tele: afib, rate controlled, occ [employer]ERNMENT [employer] acute on chronic diastolic HF: - edema and sob improving, cr stable, Switch to Lasix 80 PO daily - monitor Cr, lytes, daily weights - echo here showing lvh and rvh, possible infiltrative dz, otherwise normal lv and rv function, mild as, mild phtn. may need further eval as outpt for amyloid. COPD: - manage per primary Afib: rate controlled, d/c tele - cont cardizem, digoxin - cont coumadin, goal INR 2-3 HTN: - monitor, cont current meds ppm ([employer]) - outpatient monitoring
--- NOTE | 2019-11-30 10:25 | PN ---
Progress Note, Physician History of Present Illness: pulmonary alert,comfortable,oob-chair - Current Medication List Current Medications: Active Medications Acetaminophen (Tylenol -) 500 mg PO Q6H PRN PRN Reason: PAIN LEVEL 6-10 Last Admin: 11/30/19 06:10 Dose: 500 mg Albuterol/Ipratropium (Duoneb -) 1 amp NEB Q4H PRN PRN Reason: SHORTNESS OF BREATH Digoxin (Lanoxin -) 0.125 mg PO DAILY [facility] Last Admin: 11/30/19 09:36 Dose: 0.125 mg Diltiazem HCl (Cardizem Cd -) 360 mg PO DAILY [facility] Last Admin: 11/30/19 09:37 Dose: 360 mg Furosemide (Lasix -) 80 mg PO DAILY [facility] Gabapentin (Neurontin -) 300 mg PO TID [facility] Last Admin: 11/30/19 06:11 Dose: 300 mg Insulin Aspart (Novolog Vial Sliding Scale -) 1 vial SQ ACHS [facility]; Protocol Last Admin: 11/30/19 06:09 Dose: Not Given Labetalol HCl (Normodyne -) 400 mg PO BID [facility] Last Admin: 11/30/19 09:37 Dose: 400 mg Memantine (Namenda -) 5 mg PO DAILY [facility] Last Admin: 11/30/19 09:37 Dose: 5 mg Methimazole (Tapazole -) 5 mg PO DAILY [facility] Last Admin: 11/30/19 09:38 Dose: 5 mg Non-Formulary Medication (Galantamine Hbr [Razadyne Er]) 8 mg PO DAILY [facility] Potassium Chloride (K-Dur -) 10 meq PO BID [facility] Last Admin: 11/30/19 09:37 Dose: 10 meq Pramipexole Dihydrochloride (Mirapex -) 0.25 mg PO DAILY [facility] Last Admin: 11/30/19 09:37 Dose: 0.25 mg Valsartan (Diovan -) 320 mg PO DAILY [facility] Last Admin: 11/30/19 09:37 Dose: 320 mg Warfarin Sodium (Coumadin -) 5 mg PO DAILY@1800 [facility] Last Admin: 11/28/19 17:09 Dose: 5 mg - Objective Vital Signs: Vital Signs Temperature 98.4 F 11/30/19 05:00 Pulse Rate 66 11/30/19 09:36 Respiratory Rate 20 02/28/20 05:00 Blood Pressure 157/67 02/28/20 05:00 O2 Sat by Pulse Oximetry (%) 98 11/29/19 21:00 Constitutional: Yes: Well Nourished, Calm Eyes: Yes: WNL HENT: Yes: WNL Neck: Yes: WNL Cardiovascular: Yes: Pulse Irregular, S1, S2 Respiratory: Yes: Rales (bibasilar rales) Gastrointestinal: Yes: Normal Bowel Sounds, Soft Extremities: Yes: WNL Edema: No Labs: CBC, BMP 11/28/19 05:20 11/30/19 06:59 INR, PTT INR 2.33 (0.83-1.09) H 11/30/19 06:59 Problem List - Problems (1) Sleep apnea Code(s): G47.30 - SLEEP APNEA, UNSPECIFIED (2) CHF exacerbation Code(s): I50.9 - HEART FAILURE, UNSPECIFIED Qualifiers: Heart failure type: unspecified Qualified Code(s): I50.9 - Heart failure, unspecified (3) Hypertension Code(s): I10 - ESSENTIAL (PRIMARY) HYPERTENSION Qualifiers: Hypertension type: unspecified Qualified Code(s): I10 - Essential (primary ) hypertension (4) Edema Code(s): R60.9 - EDEMA, UNSPECIFIED Qualifiers: Edema type: unspecified Qualified Code(s): R60.9 - Edema, unspecified (5) Atrial fibrillation Code(s): I48.91 - UNSPECIFIED ATRIAL FIBRILLATION (6) Hyperlipemia Code(s): E78.5 - HYPERLIPIDEMIA, UNSPECIFIED (7) H/O: CVA (cerebrovascular accident) Code(s): Z86.73 - PRSNL HX OF TIA (TIA), AND CEREB INFRC W/O RESID DEFICITS (8) Dyspnea Code(s): R06.00 - DYSPNEA, UNSPECIFIED Assessment/Plan IMP DYSPNEA IMPROVING ACUTE ON CHRONIC DIASTOLIC HF AFIB S/PPM S/P CVA HTN HLD ANEMIA SEVERE LIZBETH ON CPAP 9 IDDM PLAN LASIX O2 DAILY [facility] MONITOR LYTES,RENAL FUNCTION F/U CHEST X-RAY TODAY CPAP 9cm H2O AT NIGHT DR BEE Problem List - Problems (1) Sleep apnea Code(s): G47.30 - SLEEP APNEA, UNSPECIFIED (2) CHF exacerbation Code(s): I50.9 - HEART FAILURE, UNSPECIFIED Qualifiers: Heart failure type: unspecified Qualified Code(s): I50.9 - Heart failure, unspecified (3) Hypertension Code(s): I10 - ESSENTIAL (PRIMARY) HYPERTENSION Qualifiers: Hypertension type: unspecified Qualified Code(s): I10 - Essential (primary ) hypertension (4) Edema Code(s): R60.9 - EDEMA, UNSPECIFIED Qualifiers: Edema type: unspecified Qualified Code(s): R60.9 - Edema, unspecified (5) Atrial fibrillation Code(s): I48.91 - UNSPECIFIED ATRIAL FIBRILLATION (6) Hyperlipemia Code(s): E78.5 - HYPERLIPIDEMIA, UNSPECIFIED (7) H/O: CVA (cerebrovascular accident) Code(s): Z86.73 - PRSNL HX OF TIA (TIA), AND CEREB INFRC W/O RESID DEFICITS (8) Dyspnea Code(s): R06.00 - DYSPNEA, UNSPECIFIED
[2019-11-30 11:26] VITALS: BP 191/67; TEMP 98.1
[2019-11-30] MEDS ORDERED: INSULIN (NOVOLOG) ASPART 100 UNITS/ML 10ML VIAL ONE (11:50)
--- NOTE | 2019-11-30 18:16 | DS ---
Physical Examination Vital Signs: Vital Signs Temperature 98.1 F 11/30/19 09:00 Pulse Rate 66 11/30/19 09:36 Respiratory Rate 20 11/30/19 09:00 Blood Pressure 191/67 H 11/30/19 09:00 O2 Sat by Pulse Oximetry (%) 95 11/30/19 09:00 Constitutional: Yes: No Distress HENT: Yes: Atraumatic Neck: Yes: Supple Cardiovascular: Yes: Regular Rate and Rhythm Respiratory: Yes: CTA Bilaterally Gastrointestinal: Yes: Normal Bowel Sounds Extremities: Yes: WNL Edema: No Neurological: Yes: Alert, Oriented Labs: CBC, BMP 11/28/19 05:20 11/30/19 06:59 Discharge Summary Problems reviewed: Yes Reason For Visit: ACUTE CHRONIC CHF,HYPERTENSION, Condition: Stable - Instructions Referrals: Liang Mancia MD [Staff Physician] - Disposition: HOME - Home Medications Comprehensive Discharge Medication List: Ambulatory Orders Acetaminophen [Non-Aspirin Pain Relief] 500 mg PO PRN 11/26/19 Centrum Silver Tablet PO DAILY 11/26/19 Digoxin [Lanoxin -] 0.125 mg PO DAILY 11/26/19 Diltiazem HCl [Diltiazem 24Hr ER] 360 mg PO DAILY 11/26/19 Donepezil HCl [Aricept -] 5 mg PO DAILY 11/26/19 Furosemide [Lasix] 80 mg PO DAILY 11/26/19 Gabapentin [Neurontin -] 300 mg PO Q8H 11/26/19 Glipizide [Glucotrol -] 5 mg PO BID 11/26/19 Humalog Mix 75-25 Kwikpen SQ PRN 11/26/19 Labetalol HCl [Normodyne -] 400 mg PO TID 11/26/19 Memantine HCl 5 mg PO BID 11/26/19 Methimazole 5 mg PO DAILY 11/26/19 Olmesartan Medoxomil [Benicar -] 40 mg PO DAILY 11/26/19 Potassium Chloride [K-Dur -] 10 meq PO BID 11/26/19 Vit D3-Vit K/Berberine/Hops [Ostera Tablet] 11/26/19 Warfarin Na [Coumadin -] 2.5 mg PO DAILY@1800 11/26/19 Warfarin Na [Coumadin -] 5 mg PO ONCE 11/26/19 hydrALAZINE HCL [Apresoline -] 25 mg PO TID 11/26/19 ok home
[2019-12-01] MEDS ORDERED: FUROSEMIDE 40 MG TABLET (FP) PO SCH (10:00)
== END 2019-11-30 15:40 | disposition home or self-care (01) | DRG 291 ==
LOC: JER 06:59 → JERBED 10:03 → J4W 11-27 18:17
PROVIDERS: ADMIT Internal Medicine; ATTEND Internal Medicine
DX: I13.0 Hypertensive heart and chronic kidney disease with heart failure and stage 1 through stage 4 chronic kidney disease, or unspecified chronic kidney disease (principal); I50.33 Acute on chronic diastolic (congestive) heart failure; E78.5 Hyperlipidemia, unspecified; I48.91 Unspecified atrial fibrillation; R60.9 Edema, unspecified; E05.90 Thyrotoxicosis, unspecified without thyrotoxic crisis or storm; E11.51 Type 2 diabetes mellitus with diabetic peripheral angiopathy without gangrene; E11.42 Type 2 diabetes mellitus with diabetic polyneuropathy; E11.22 Type 2 diabetes mellitus with diabetic chronic kidney disease; N18.9 Chronic kidney disease, unspecified; D64.9 Anemia, unspecified; G47.33 Obstructive sleep apnea (adult) (pediatric); R06.00 Dyspnea, unspecified; Z79.01 Long term (current) use of anticoagulants; Z95.0 Presence of cardiac pacemaker
CPT/HCPCS: 36415; 71045-TC-FY; 80048; 80053; 82550; 82553; 82947; 82962; 83735; 83880; 84439; 84443; 84479; 84481; 84484; 85025; 85610; 93005; 93010; 93306-TC; 99285-25

== ENCOUNTER 2020-11-08 16:40 | Emergency (ER) | payer OTHER ==
[2020-11-08 17:31] VITALS: BP 0/0; PULSE 0; BMI 27.5
== END 2020-11-08 20:06 | disposition expired ==
LOC: JER 16:40
DX: I46.9 Cardiac arrest, cause unspecified (principal)
CPT/HCPCS: 99282-25